=== PATIENT | male | born 1990 | race Caucasian/White ===

== ENCOUNTER 2022-05-01 14:48 | Outpatient (REF) | payer MEDICAID, SELFPAY ==
[2022-05-02 14:13] LABS: COVID-19 RT-PCR UVMMC Result Negative (Negative)
== END 2022-05-01 14:49 | disposition home or self-care (01) ==
LOC: LBN 14:48
PROVIDERS: Visit Provider Physician Assistant
DX: Z20.822 Contact with and (suspected) exposure to COVID-19 (principal); R68.89 Other general symptoms and signs
CPT/HCPCS: U0003

== ENCOUNTER 2022-10-30 15:55 | Outpatient (REF) | payer MEDICAID, SELFPAY ==
[2022-10-30 19:20] LABS: Hemoglobin A1C 9.1 % (<5.7)
[2022-10-30 19:24] LABS: ALT 63 U/L (16-63); Albumin 4.2 g/dL (3.4-5.0); Alkaline Phosphatase 78 U/L (46-116); Anion Gap 11.7 mmol/L (3-11); BUN 13 mg/dL (7-18); Bilirubin, Total 0.4 mg/dL (0.2-1.0); CO2 25.3 mmol/L (21.0-32.0); COMMENT (LAB VIEW ONLY) 48.03 mg/dL; CREATININE 1.1 mg/dL (0.70-1.30); Calcium 9.1 mg/dL (8.5-10.1); Chloride 98 mmol/L (98-107); Cholesterol 312 mg/dL (<200); Estimated GFR 91.47 (mL/min/1.73m2); Glucose 401 mg/dL (74-106); HDL Cholesterol 47 mg/dL (40-60); Microalb ug/mg Crea 46.4 ug/mg Cr; Potassium 4.1 mmol/L (3.5-5.1); Sodium 135 mmol/L (136-145); Total Protein 7.3 g/dL (6.4-8.2); Triglyceride 670 mg/dL (<150)
[2022-10-30 19:38] LABS: LDL CHOLESTEROL 138 mg/dL (<100)
[2022-10-30 19:51] LABS: AST 25 U/L (15-37)
[2022-11-02 09:58] LABS: HIV-1/2 Ag & Ab Screen Negative (Negative)
[2022-11-02 10:26] LABS: Hepatitis C Ab w Rflx HCV PCR Negative (Negative)
[2022-11-02 12:16] LABS: Syphilis Serology (RPR) Negative (Negative)
[2022-11-02 13:48] LABS: Chlamydia Result Negative (Negative); GC Result Negative (Negative)
== END 2022-10-30 15:56 | disposition home or self-care (01) ==
LOC: NCHCN 15:55
PROVIDERS: Visit Provider Physician Assistant
DX: Z11.3 Encounter for screening for infections with a predominantly sexual mode of transmission (principal); Z11.59 Encounter for screening for other viral diseases; Z11.4 Encounter for screening for human immunodeficiency virus [HIV]; E11.9 Type 2 diabetes mellitus without complications; E78.5 Hyperlipidemia, unspecified
CPT/HCPCS: 80053; 80061; 83721; 86803; 87389; 87491; 87591; 82043; 82570; 83036; 86592

== ENCOUNTER 2023-06-30 17:17 | Outpatient (REF) | payer MEDICAID, SELFPAY ==
[2023-06-30 20:52] LABS: MCH 29.1 pg (27.0-33.0); MCHC 34.9 % (32.0-36.0); MCV 83 fL (80-95); MPV 9.5 fL (8.0-11.0); Platelet Count 228 10^3/uL (130-400); RBC 5.16 10^6/uL (4.36-5.78); RDW 12.4 % (11.8-14.1); RDW-SD 37.7 fL; WBC 6.43 10^3/uL (4.4-10.8)
[2023-06-30 20:54] LABS: ESR 7 mm/hr (0-15)
[2023-06-30 21:08] LABS: ALT 35 U/L (16-63); AST 23 U/L (15-37); Albumin 3.8 g/dL (3.4-5.0); Alkaline Phosphatase 69 U/L (46-116); Anion Gap 8.8 mmol/L (3-11); BUN 15 mg/dL (7-18); Bilirubin, Total 0.3 mg/dL (0.2-1.0); C-Reactive Protein 0.08 mg/dL (0.0-0.3); CO2 27.2 mmol/L (21.0-32.0); CREATININE 1.1 mg/dL (0.70-1.30); Calcium 8.7 mg/dL (8.5-10.1); Chloride 104 mmol/L (98-107); Glucose 266 mg/dL (74-106); Potassium 4.2 mmol/L (3.5-5.1); Sodium 140 mmol/L (136-145); Total Protein 6.8 g/dL (6.4-8.2)
[2023-07-02 12:29] LABS: Lyme Ab w Rflx to Lyme Confirm Negative (Negative)
[2023-07-05 15:05] LABS: Anaplasma phagocytophilum Negative (Negative); B. miyamotoi PCR Negative (Negative); Babesia divergens/MO-1 Negative (Negative); Babesia duncani Negative (Negative); Babesia microti Negative (Negative); Ehrlichia chaffeensis Negative (Negative); Ehrlichia ewingii/canis Negative (Negative); Ehrlichia muris eauclairensis Negative (Negative)
== END 2023-06-30 17:18 | disposition home or self-care (01) ==
LOC: NCHCN 17:17
PROVIDERS: Visit Provider Physician Assistant
DX: M25.59 Pain in other specified joint (principal)
CPT/HCPCS: 80053; 85027; 85652; 87798; 83036; 86140; 86618

== ENCOUNTER 2024-01-19 15:53 | Outpatient (REF) | payer MEDICAID, SELFPAY ==
[2024-01-19 19:53] LABS: Albumin 3.8 g/dL (3.4-5.0); Alkaline Phosphatase 90 U/L (46-116); Anion Gap 11.6 mmol/L (3-11); BUN 12 mg/dL (7-18); Bilirubin, Total 0.5 mg/dL (0.2-1.0); CO2 23.4 mmol/L (21.0-32.0); Calcium 8.4 mg/dL (8.5-10.1); Chloride 101 mmol/L (98-107); Cholesterol 219 mg/dL (<200); Estimated GFR 101.92 (mL/min/1.73m2); Glucose 371 mg/dL (74-106); HDL Cholesterol 38 mg/dL (40-60); Potassium 4.5 mmol/L (3.5-5.1); Sodium 136 mmol/L (136-145); Triglyceride 978 mg/dL (<150)
[2024-01-19 20:54] LABS: ALT 36 U/L (16-63)
[2024-01-19 23:11] LABS: AST 9 U/L (15-37)
[2024-01-19 23:13] LABS: LDL CHOLESTEROL 66 mg/dL (<100)
[2024-01-19 23:27] LABS: Total Protein 7.2 g/dL (6.4-8.2)
== END 2024-01-19 15:54 | disposition home or self-care (01) ==
LOC: NCHCN 15:53
PROVIDERS: Visit Provider Physician Assistant
DX: E11.9 Type 2 diabetes mellitus without complications (principal)
CPT/HCPCS: 80053; 80061; 83721; 83036

== ENCOUNTER 2024-11-01 09:08 | Outpatient (REF) | payer MEDICAID, SELFPAY ==
[2024-11-01 22:57] LABS: HIV-1/2 Ag & Ab Screen Negative (Negative)
[2024-11-01 23:02] LABS: Hepatitis C Ab w Rflx HCV PCR Negative (Negative)
[2024-11-02 09:34] LABS: Syphilis Serology (RPR) Negative (Negative)
== END 2024-11-01 09:09 | disposition home or self-care (01) ==
LOC: NCHCN 09:08
PROVIDERS: Visit Provider Physician Assistant
DX: Z11.59 Encounter for screening for other viral diseases (principal)
CPT/HCPCS: 86803; 87389; 86592

== ENCOUNTER 2024-11-28 12:49 | Outpatient (CLI) | payer MEDICAID, SELFPAY ==
--- NOTE | 2024-11-28 | DI.RAD_ITS ---
Exam(s) XR WRIST LT COMPLETE EXAM: XR WRIST LT COMPLETE CLINICAL HISTORY: PAIN LT WRIST,M25.532. TECHNIQUE: 2D digital imaging was performed. Three views. COMPARISON: No exams were available for comparison FINDINGS: BONES: No acute fracture is present. No bony destructive lesion is seen. JOINTS: The carpal bones are normally aligned. SOFT TISSUE: Swelling. IMPRESSION: No acute bony abnormality. DATA REPOSITORY: RADIATION DOSE DELIVERED:
== END 2024-11-28 13:09 ==
PROVIDERS: Visit Provider Physician Assistant
DX: M25.532 Pain in left wrist (principal)
CPT/HCPCS: 73110

== ENCOUNTER 2024-11-28 16:29 | Outpatient (REF) | payer MEDICAID, SELFPAY ==
--- OUTSIDE RECORDS SUMMARY | 2024-11-28 16:30 | XMS_ITS | Encounter Summary ---
Author Organization [facility] Address [address] [place] [address] Care Team Providers Care Bag Shop Worker Name Role Phone Antonio Wilde Primary Care Provider Katherine moreno Encounter Details Date Type Department Care Team (Latest Contact Info) Description 11/01/2024 Transcribe Orders [facility] Lab - Main [place] [address] [place] [address] Dhiarj Smith, [facility] [address] ASHA [address] [place] [address] Encounter for screening for other viral diseases (Primary Dx) Social History Tobacco Use Types Packs/Day Years Used Date Smoking Tobacco: Never Smokeless Tobacco: Current Alcohol Use Standard Drinks/Week Comments Not Currently 0 (1 standard drink = 0.6 oz pur e alcohol) Sex and Gender Information Value Date Recorded Sex Assigned at Male 10/19/2024 18:14 EST Legal Sex Male 17:53 EST Gender Identity Not on file Sexual Orientation Not on file documented as of this encounter Functional Status * Are you deaf or do you have serious difficulty hearing? Answer Date of Assessment Author No 10/19/2024 16:50 EST Shirley Egan, RN documented as of this encounter Plan of Treatment Upcoming Encounters Date Type Department Care Team (Late st Contact Info) Description 12/06/2024 14:45 EST Rehab Therapy Visit [facility] Rehabilitation Therapy [address] [place], [place] [id number] Otter, Anita, OT [address] [place] [address] 12/13/2024 15:45 EST Rehab Therapy Visit [facility] Rehabilitation Therapy [address] [place] [address] Anita Power, OT [address] [place] [address] 12/20/2024 16:30 EST Rehab Therapy Visit [facility] Rehabilitation Therapy [address] [place] [address] Anita Power, OT [address] [place] [address] 12/27/2024 16:30 EST Rehab Therapy Visit [facility] Rehabilitation Therapy [address] [place] [address] Anita Power, OT [address] [place] [address] Scheduled Orders Name Type Priority Associated Diagnoses Orde r Schedule SYPHILIS RPR SCREEN W/REFLEX Lab Routine Encounter for screening for other viral diseases Expected: 11/01/2024 (Approximate), Expires: 01/30/2025 HIV 1/2 ANTIGEN AND ANTIBODY, 4TH GENERATION Lab Routine Encounter for screening for other viral diseases Expected: 11/01/2024 (Approximate), Expires: 01/30/2025 documented as of this encounter Visit Diagnoses Diagnosis Encounter for screening for other viral diseases- Primary documented in this encounter Care Teams Bag Shop Worker Relationship Specialty Start Date End Date Antonio Wilde PA PCP - General 09/25/15 documented as of this encounter
--- OUTSIDE RECORDS SUMMARY | 2024-11-28 16:30 | XMS_ITS | Encounter Summary ---
Author Organization [facility] Address [address] [place] [address] Care Team Providers Care Shift Commander Name Role Phone Antonio Wilde Primary Care Provider Katherine moreno Encounter Details Date Type Department Care Team (Latest Contact Info) Description 10/19/2024 Travel Social History Tobacco Use Types Packs/Day Years [...] Description 12/06/2024 14:45 EST Rehab Therapy Visit [facility] Rehabilitation Therapy [address] [place] [address] Anita Power, OT [address] [place] [address] 12/13/2024 15:45 EST Rehab Therapy Visit [facility] Rehabilitation Therapy [address] [place] [address] Anita Power, OT [address] [place] [address] 12/20/2024 16:30 EST Rehab Therapy Visit [facility] Rehabilitation Therapy [address] [place] [address] Anita Power, OT [address] [place] [address] 12/27/2024 16:30 EST Rehab Therapy Visit [facility] Rehabilitation Therapy [address] [place] [address] Anita Power, OT [address] [place] [address] documented as of this encounter Visit Diagnoses Not on filedocumented in this encounter Care Teams Shift Commander Relationship Specialty Start Date End Date Antonio Wilde PA PCP - General 09/25/15 documented as of this encounter
--- OUTSIDE RECORDS SUMMARY | 2024-11-28 16:30 | XMS_ITS | Encounter Summary ---
Author Organization [facility] Address [address] [place] [address] Care Team Providers Care Associate Publisher Name Role Phone Antonio Wilde Primary Care Provider Katherine moreno Encounter Details Date Type Department Care Team (Latest Contact Info) Description 11/28/2024 Transcribe Orders [facility] Lab - Main [place] [address] [place] [address] Dhiraj Smith, [facility] [address] ASHA [address] [place] [address] Type 2 diabetes mellitus without complications ([facility]) (Primary Dx) Social History Tobacco Use Types [...] Description 12/06/2024 14:45 EST Rehab Therapy Visit [facility] Rehabilitation Therapy [address] [place] [address] Anita Power, OT [address] [place] [address] 12/13/2024 15:45 EST Rehab Therapy Visit [facility] Rehabilitation Therapy [address] [place] [address] Anita Power, OT [address] [place] [address] 12/20/2024 16:30 EST Rehab Therapy Visit [facility] Rehabilitation Therapy [address] [place] [address] Anita Power, OT [address] [place] [address] 12/27/2024 16:30 EST Rehab Therapy Visit [facility] Rehabilitation Therapy [address] [place] [address] Anita Power, OT [address] [place] [address] Scheduled Orders Name Type Priority Associated Diagnoses Orde r Schedule COMPREHENSIVE METABOLIC PANEL (CMP) Lab Routine Type 2 diabetes mellitus without complications ([facility]) Expected: 11/28/2024 (Approximate), Expires: 11/28/2025 LIPID PROFILE (INCLUDES CHOLESTEROL, TRIGLYCERIDES, HDL, LDL) Lab Routine Type 2 diabetes mellitus without complications ([facility]) Expected: 11/28/2024 (Approximate), Expires: 11/28/2025 documented as of this encounter Visit Diagnoses Diagnosis Type 2 diabetes mellitus without complications ([facility])- Primary Type II or unspecified type diabetes mellitus without mention of complication, not stated as uncontrolled documented in this encounter Care Teams Associate Publisher Relationship Specialty Start Date End Date Antonio Wilde PA PCP - General 09/25/15 documented as of this encounter
--- OUTSIDE RECORDS SUMMARY | 2024-11-28 16:30 | XMS_ITS | Encounter Summary ---
Author Organization [facility] Address [address] [place] [address] Care Team Providers Care Systems Test Analyst Name Role Phone Antonio Wilde Primary Care Provider Katherine moreno Encounter Details Date Type Department Care Team (Latest Contact Info) Description 11/28/2024 Transcribe Orders [facility] Lab - Main [place] [address] [place] [address] Dhiraj Smith, [facility] [address] ASHA [address] [place] [address] Type 2 diabetes mellitus without complications ([facility]) (Primary Dx) Social History Tobacco Use [...] Description 12/06/2024 14:45 EST Rehab Therapy Visit [facility] Rehabilitation Therapy [address] [place] [address] Anita Power, OT [address] [place] [address] 12/13/2024 15:45 EST Rehab Therapy Visit [facility] Rehabilitation Therapy [address] [place] [address] Anita Power, OT [address] [place] [address] 12/20/2024 16:30 EST Rehab Therapy Visit [facility] Rehabilitation Therapy [address] [place] [address] Anita Power, OT [address] [place] [address] 12/27/2024 16:30 EST Rehab Therapy Visit [facility] Rehabilitation Therapy [address] [place] [address] Anita Power, OT [address] [place] [address] Scheduled Orders Name Type Priority Associated Diagnoses Orde r Schedule HEMOGLOBIN A1C Lab Routine Type 2 diabetes mellitus without complications ([facility]) Expected: 11/28/2024 (Approximate), Expires: 02/26/2025 documented as of this encounter Visit Diagnoses Diagnosis Type 2 diabetes mellitus without complications ([facility])- Primary Type II or unspecified type diabetes mellitus without mention of complication, not stated as uncontrolled documented in this encounter Care Teams Systems Test Analyst Relationship Specialty Start Date End Date Antonio Wilde PA PCP - General 09/25/15 documented as of this encounter
--- OUTSIDE RECORDS SUMMARY | 2024-11-28 16:30 | XMS_ITS | Encounter Summary ---
Author Organization [facility] Address [address] [place] [address] Care Team Providers Care Heavy Equipment Operator/Paver Name Role Phone Antonio Wilde Primary Care Provider Katherine moreno Encounter Details Date Type Department Care Team (Late st Contact Info) Description 11/01/2024 Lab Requisition [facility] Pathology & Laboratory Medicine - [facility] [address] [place] [address] Outr Resulting Lab, Provider Social History Tobacco Use Types Packs/Day Years [...] Description 12/06/2024 14:45 EST Rehab Therapy Visit [facility] Rehabilitation Therapy [address] [place] [address] Anita Power, OT [address] [place] [address] 12/13/2024 15:45 EST Rehab Therapy Visit [facility] Rehabilitation Therapy [address] [place] [address] Anita Power, OT [address] [place] [address] 12/20/2024 16:30 EST Rehab Therapy Visit [facility] Rehabilitation Therapy [address] [place] [address] Anita Power, OT [address] [place] [address] 12/27/2024 16:30 EST Rehab Therapy Visit [facility] Rehabilitation Therapy [address] [place] [address] Anita Power, OT [address] [place] [address] documented as of this encounter Procedures Procedure Name Priority Date/Time Associated Diagnosis Comments HIV 1/2 ANTIGEN AND ANTIBODY, 4TH GENERATION Routine 11/01/2024 8:00 EST documented in this encounter Results * HIV 1/2 ANTIGEN AND ANTIBODY, 4TH GENERATION (11/01/2024 8:00 EST) HIV 1 and 2 Antibody/p24 Antigen, 4th Generation Negative Negative 11/01/2024 22:51 EST [facility] Comment:If acute HIV-1 infec tion is suspected in a high risk patient, submit plasma specimen for HIV-1 RNA quantitation test. Blood VENOUS BLOOD / Unknown 11/01/2024 8:00 EST 11/01/2024 21:09 EST Narrative [facility] - 11/01/2024 22:51 EST Fourth Generation assay performed on the Siemens Centaur XPT. us Provider Outr Resulting Lab IMMUNOLOGY AND SEROL OGY ORDERABLES Final Result [facility] [address] [place] [address] documented in this encounter Visit Diagnoses Not on filedocumented in this encounter Care Teams Heavy Equipment Operator/Paver Relationship Specialty Start Date End Date Antonio Wilde PA PCP - General 09/25/15 documented as of this encounter
--- OUTSIDE RECORDS SUMMARY | 2024-11-28 16:30 | XMS_ITS | Encounter Summary ---
Author Organization [facility] Address [address] [place] [address] Care Team Providers Care Vault Person Name Role Phone Antonio Wilde Primary Care Provider Unavaila ble Reason for Visit * Reason Comments Wrist Injury Patient presents wit h atraumatic left wrist pain and swelling for the past 2 weeks. Encounter Details Date Type Department Care Team (Late st Contact Info) Description 10/19/2024 16:54 EST - 10/19/2024 18:23 EST Emergency [facility] Emergency Department [address] [place] [address] Ermias Samuel MD [address] [place] [address] Left wrist pain (Primary Dx) Discharge Disposition: Home or Self Care Social History Tobacco Use Types Packs/Day Years [...] on file documented as of this encounter Last Filed Vital Signs Vital Sign Reading Time Taken Comments Blood Pressure 161/94 10/19/2024 1651 EST Pulse 90 10/19/2024 1651 EST Temperature 36.9 ??C (98.5 ??F) 10/19/2024 1651 EST Respiratory Rate 14 10/19/2024 1651 EST Oxygen Saturation 98% 10/19/2024 1651 EST Inhaled Oxygen Concentration - - Weight 80.3 kg (177 lb) 10/19/2024 1651 EST Height 172.7 cm (5' 8) 10/19/2024 1651 EST Body Mass Index 26.91 10/19/2024 1651 EST documented in this encounter Functional Status * Are you deaf or do you have serious difficulty hearing? Answer Date of Assessment Author No 10/19/2024 16:50 EST Shirley Egan RN documented as of this encounter Discharge Instructions * Discharge Instructions* Ermias Samuel MD - 10/19/2024 18:11 EST You were seen in the department for left wrist pain and swelling. Your x-rays did not show any abnormalities with your bones. It is possible this is due to gout or pseudogout. These are both treated with anti-inflammatory pain medication. Take indomethacin 50 mg 3 times daily. Continue the medication for a few days after your pain improves. Wear the wrist splint to support your wrist, especially when you are working. If you can limit the amount of heavy lifting and physical activity you do with your wrist this will help the pain improved faster. Follow-up with your primary care provider soon as possible. Return to the ED for worsening symptoms. documented in this encounter Medications at Time of Discharge indomethacin (INDOCIN) 50 mg capsule Take 1 Capsule by mouth 3 times daily as needed for Pain. 30 Capsule 10/19/2024 insulin glargine 100 unit/mL (3 mL) injection pen Inject 40 Units into the skin at bedtime. insulin lispro (HUMALOG) 100 unit/mL vialIndications:t ype 1 diabetes mellitus Inject 8 Units into the skin 3 times daily before meals. semaglutide (OZEMPIC) 1 mg/dose (2 mg/1.5 mL) pen injector Inject 0.75 mL into the skin once a week. documented as of this encounter Ordered Prescriptions Prescription Sig Dispense Quantity Refills Last Filled Start Date End Date indomethacin (INDOCIN) 50 mg capsule Take 1 Capsule by mouth 3 times daily as needed for Pain. 30 Capsule 10/19/2024 documented in this encounter Discharge Disposition Disposition Code Departure Means Destination Comment s Home or Self Half-Way documented in this encounter ED Notes * Ermias Samuel MD - 10/19/2024 1630 EST Emergency Department Visit Medical Decision Making 34-year-old male with insulin-dependent diabetes presents to the ED with about 3 weeks of atraumatic left wrist pain. On exam the wrist is slightly swollen, not red or warm. Range of motion is limited by pain and there is tenderness that is worst over the radial aspect and distal radius. By ultrasound there is a very small amount of fluid surrounding one of the extensor tendons but no significant effusion to allow arthrocentesis. Differential includes crystal arthropathy, tendinosis, arthritis,less likely destructive bony lesion. Considered septic joint but symptoms and exam are not concerning for this. Left wrist x-rays obtained and independently reviewed. These are normal. 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 He was provided with a Velcro wrist splint and Iprescribed indomethacin. I recommended he try to avoid heavy lifting at work and offered to write awork note but he does not think he can afford to take any days off. I recommended he follow-up withhis PCP. Medical Decision Making Problems Addressed: Left wrist pain: complicated acute illness or injury Amount and/or Complexity of Data Reviewed Radiology: ordered. Risk Prescription drug management. Final diagnoses: Left wrist pain Disposition: Discharged Chief complaint: Wrist pain HPI Wilson Monteiro is a 34 y.o. patient with insulin-dependent diabetes who presents to the ED for left wrist pain. Has had pain in his left wrist for about 3 weeks. Does not recall any preceding trauma. 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 His wrist is swollen. It is not red. He states it is often hot and painful in the morning. No fever. History was provided by: Patient Patient's pertinent PMH, FH, SH were reviewed and edited as necessary. Nursing notes reviewed. A medical screening exam was performed. Physical Exam BP (!) 161/94 (BP Cuff Location: Left arm, BP Patient Position: Sitting) Pulse 90 Temp 36.9 ??C(98.5 ??F) (Oral) Resp 14 Ht 172.7 cm (68) Wt 80.3 kg (177 lb) SpO2 98% BMI 26.91 kg/m?? Physical Exam Vitals and nursing note reviewed. Constitutional: General: He is not in acute distress. Appearance: Normal appearance. HENT: Head: Normocephalic and atraumatic. Right Ear: External ear normal. Left Ear: External ear normal. Nose: Nose normal. Mouth/Throat: Mouth: Mucous membranes are moist. Eyes: Extraocular Movements: Extraocular movements intact. Conjunctiva/sclera: Conjunctivae normal. Pupils: Pupils are equal, round, and reactive to light. Cardiovascular: Rate and Rhythm: Normal rate and regular rhythm. Heart sounds: Normal heart sounds. Pulmonary: Effort: Pulmonary effort is normal. Breath sounds: Normal breath sounds. Musculoskeletal: General: No deformity. Cervical back: Normal range of motion and neck supple. Comments: Left wrist is mildly swollen. No redness or warmth. Range of motion is limited by pain. There is tenderness that is worse over the radial aspect and over the distal radius. Normal strength,sensation and capillary refill to the left hand. Skin: General: Skin is warm and dry. Neurological: General: No focal deficit present. Mental Status: He is alert and oriented to person, place, and time. Psychiatric: Mood and Affect: Mood normal. Behavior: Behavior normal. Procedures Procedures documented in this encounter Plan of Treatment Upcoming Encounters Date Type Department Care Team (Late st Contact Info) Description 12/06/2024 14:45 EST Rehab Therapy Visit [facility] Rehabilitation Therapy [address] [place] [address] Anita Power, OT [address] [place] [address] 12/13/2024 15:45 EST Rehab Therapy Visit [facility] Rehabilitation Therapy [address] [place] [address] Anita Power OT [address] [place] [address] 12/20/2024 16:30 EST Rehab Therapy Visit [facility] Rehabilitation Therapy [address] [place] [address] Anita Power OT [address] [place] [address] 12/27/2024 16:30 EST Rehab Therapy Visit [facility] Rehabilitation Therapy [address] [place] [address] Anita Power, OT [address] [place] [address] documented as of this encounter Procedures Procedure Name Priority Date/Time Associated Diagnosis Comments XR WRIST LEFT 3 OR MORE VIEWS STAT 10/19/2024 17:27 EST documented in this encounter Results * XR WRIST LEFT 3 OR MORE VIEWS (10/19/2024 17:27 EST) Anatomical Region Laterality Modality Upper Extremities Left Computed Radio graphy 10/19/2024 17:2 0 EST Impressions 10/19/2024 17:47 EST Normal appearing wrist. THIS DOCUMENT HAS BEEN ELECTRONICALLY SIGNED BY ARIELLA PARK MD FOR ANY QUESTIONS OR CONCERNS REGARDING THIS REPORT PLEASE CALL [facility] AT [phone] Narrative 10/19/2024 17:47 EST PROCEDURE INFORMATION: Exam: XR Left Wrist Exam date and time: 10/19/2024 5:20 PM Age: 34 years old Clinical indication: Other: Atraumatic left wrist pain and swelling x3 weeks TECHNIQUE: Imaging protocol: Radiologic exam of the left wrist. Views: 3 or more views. COMPARISON: No relevant prior studies available. FINDINGS: Bones/joints: The alignment of the joints is anatomic and the joint spaces are maintained. No fracture is identified. Soft tissues: No soft tissue swelling or radiopaque foreign body is seen. Procedure Note Ariella Park MD - 10/19/2024 PROCEDURE INFORMATION: Exam: XR Left Wrist Exam date and time: 10/19/2024 5:20 PM Age: 34 years old Clinical indication: Other: Atraumatic left wrist pain and swelling x3 weeks TECHNIQUE: Imaging protocol: Radiologic exam of the left wrist. Views: 3 or more views. COMPARISON: No relevant prior studies available. FINDINGS: Bones/joints: The alignment of the joints is anatomic and the joint spaces are maintained. No fracture is identified. Soft tissues: No soft tissue swelling or radiopaque foreign body is seen. IMPRESSION Normal appearing wrist. THIS DOCUMENT HAS BEEN ELECTRONICALLY SIGNED BY ARIELLA PARK MD FOR ANY QUESTIONS OR CONCERNS REGARDING THIS REPORT PLEASE CALL [facility] [phone] us Ermias Samuel MD IMG DIAGNOSTIC IMAGING ORDERABLE S Final Result documented in this encounter Visit Diagnoses Diagnosis Left wrist pain- Primary Pain in joint, forearm documented in this encounter Administered Medications Inactive Administered Medications - up to 3 most recent administrations Medication Order MAR Action Action Date Dose Rate Site indomethacin (INDOCIN) capsule 50 mg 50 mg, oral, NOW X1, 1 dose, On [place] 10/19/24 at 1830, STAT Given 10/19/2024 18:18 EST 50 mg documented in this encounter Historical Medications * This list may reflect changes made after this encounter. semaglutide (OZEMPIC) 1 mg/dose (2 mg/1.5 mL) pen injector Inject 0.75 mL into the skin once a week. added in this encounter Active and Recently Administered Medications Times are shown in EST. Scheduled Medication Order 10/17/2024 10/18/2024 10/19/2024 indomethacin (INDOCIN) capsule 50 mg (COMPLETED) 50 mg, oral, NOW X1, 1 dose, On [place] 10/19/24 at 1830, STAT 1818 (Given - Provid er: Fani Antonio RN) documented in this encounter Care Teams Vault Person Relationship Specialty Start Date End Date Antonio Wilde PA PCP - General 09/25/15 documented as of this encounter
--- OUTSIDE RECORDS SUMMARY | 2024-11-28 16:30 | XMS_ITS | Clinical Summary ---
Author Organization [facility] Address [address] [place] [address] Care Team Providers Care Offset Proof Press Operator Name Role Phone Antonio Wilde Primary Care Provider Unavaila ble Allergies No known active allergies Medications insulin lispro (HUMALOG) 100 unit/mL vialIndications :type 1 diabetes mellitus Inject 8 Units into the skin 3 times daily before meals. Active insulin glargine 100 unit/mL (3 mL) injection pen Inject 40 Units into the skin at bedtime. Active semaglutide (OZEMPIC) 1 mg/dose (2 mg/1.5 mL) pen injector Inject 0.75 mL into the skin once a week. Active indomethacin (INDOCIN) 50 mg capsule Take 1 Capsule by mouth 3 times daily as needed for Pain. 30 Capsule 10/19/2024 Active Encounters Date Type Department Care Team Description 11/28/2024 Transcribe Orders [facility] [place] [address] Dhiraj Smith RPA Type 2 diabetes mellitus without complications ([facility]) (Primary Dx) 11/28/2024 Transcribe Orders [facility] - [address] [address] Dhiraj Smith RPA Type 2 diabetes mellitus without complications ([facility]) (Primary Dx) 11/01/2024 Lab Requisition [facility] Pathology & Laboratory Medicine - [address] [address] Outr Resulting Lab, Provider 11/01/2024 Lab Requisition [facility] Pathology & Laboratory Medicine - [facility] [address] [place] [address] Outr Resulting Lab, Provider 11/01/2024 Transcribe Orders [facility] - Main [place] [address] [place], [place] [address] Dhiraj Smith RPA Encounter for screening for other viral diseases (Primary Dx) 10/19/2024 16:54 EST - 10/19/2024 18:23 EST Emergency [facility] Emergency Department [address] [place], [place] [address] Ermias Samuel MD Left wrist pain (Primary Dx) Discharge Disposition: Home or Self Care 10/19/2024 Travel from Last 3 Months Medical History Medical History Date Comments Diabetes mellitus ([facility]) Social History Tobacco Use Types Packs/Day Years Used Date Smoking Tobacco: Never Smokeless Tobacco: Current Tobacco Cessation:Ready to Q uit: Yes; Counseling Given: Not Answered Alcohol Use Standard Drinks/Week Comments Not Currently 0 (1 standard drink = 0.6 oz pur e alcohol) Sex and Gender Information Value Date Recorded Sex Assigned at Male 10/19/2024 18:14 EST Legal Sex Male 17:53 EST Gender Identity Not on file Sexual Orientation Not on file Obstetrics History Last Filed Vital Signs Vital Sign Reading [...] Body Mass Index 26.91 10/19/2024 1651 EST Plan of Treatment Upcoming Encounters Date Type Department Care Team (Late st Contact Info) Description 12/06/2024 14:45 EST Rehab Therapy Visit [facility] Rehabilitation Therapy [address] [place], [place] [id number] Anita Power, OT [address] [place] [address] 12/13/2024 15:45 EST Rehab Therapy Visit [facility] Rehabilitation Therapy [address] [place] [address] Anita Power, OT [address] [place] [address] 12/20/2024 16:30 EST Rehab Therapy Visit [facility] Rehabilitation Therapy [address] [place] [address] Anita Power, OT [address] [place] [address] 12/27/2024 16:30 EST Rehab Therapy Visit [facility] Rehabilitation Therapy [address] [place] [address] Anita Power, OT [address] [place] [address] Health Maintenance Due Date Last Done Comments Hepatitis B Vaccine (1 of 3 - 19+ 3-dose series) 2009 COVID-19 Vaccine (2023- season) 2024, 12/09/2020 Hepatitis C Screen Completed 11/01/2024, 10/30/2022 Procedures Procedure Name Priority Date/Time Associated Diagnosis Comments SYPHILIS SEROLOGY Routine 11/01/2024 8:0 0 EST HEPATITIS C AB W REFLEX TO HCV RNA BY PCR Routine 11/01/2024 8:00 EST HIV 1/2 ANTIGEN AND ANTIBODY, 4TH GENERATION Routine 11/01/2024 8:00 EST XR WRIST LEFT 3 OR MORE VIEWS STAT 10/19/2024 17:27 EST from Last 3 Months Results * SYPHILIS SEROLOGY (11/01/2024 8:00 EST) Syphilis Serology Negative Negative 11/02/2024 9:29 EST [facility] Blood VENOUS BLOOD / Unknown 11/01/2024 8:00 EST 11/01/2024 21:09 EST us Provider Outr Resulting Lab IMMUNOLOGY AND SEROL OGY ORDERABLES Final Result [facility] [address] [place], [place] [id number] * HEPATITIS C AB W REFLEX TO HCV RNA BY PCR (11/01/2024 8:00 EST) Hep C Antibody Negative Negative 11/01/2024 22:57 EST [facility] Blood VENOUS BLOOD / Unknown 11/01/2024 8:00 EST 11/01/2024 21:09 EST us Provider Outr Resulting Lab CHEMISTRY & BLOOD GA S ORDERABLES Final Result Performing Organization Address [facility] de Phone Number [facility] [address] [place] [address] * HIV 1/2 ANTIGEN AND ANTIBODY, 4TH GENERATION (11/01/2024 8:00 EST) HIV 1 and 2 Antibody/p24 Antigen, 4th Generation Negative Negative 11/01/2024 22:51 EST [facility] Comment:If acute HIV-1 infec tion is suspected in a high risk patient, submit plasma specimen for HIV-1 RNA quantitation test. Blood VENOUS BLOOD / Unknown 11/01/2024 8:00 EST 11/01/2024 21:09 EST Narrative [facility] - 11/01/2024 22:51 EST Fourth Generation assay performed on the Siemens Centaur XPT. us Provider Outr Resulting Lab IMMUNOLOGY AND SEROL OGY ORDERABLES Final Result Performing Organization Address [facility]/ZIP Co de Phone Number [facility] [address] [place], [place] [id number] * XR WRIST LEFT 3 OR MORE VIEWS (10/19/2024 17:27 EST) Anatomical Region Laterality Modality Upper Extremities Left Computed Radio graphy 10/19/2024 17:2 0 EST Impressions 10/19/2024 17:47 EST Normal appearing wrist. THIS DOCUMENT HAS BEEN ELECTRONICALLY SIGNED BY ARIELLA PARK MD FOR ANY QUESTIONS OR CONCERNS REGARDING THIS REPORT PLEASE CALL [facility] AT [phone] Narrative 10/19/2024 17:47 EST PROCEDURE INFORMATION: Exam: [...] CONCERNS REGARDING THIS REPORT PLEASE CALL [facility] [phone] Ermias Samuel MD IM DIAGNOSTIC IMAGING ORDERABLE S Final Result from Last 3 Months Insurance MEDICAID [place] [facility] GL Address: [address] [place] [address] MEDICAID [facility] Care Teams Offset Proof Press Operator Relationship Specialty Start Date End Date Antonio Wilde PA PCP - General 09/25/15
--- OUTSIDE RECORDS SUMMARY | 2024-11-28 16:30 | XMS_ITS | Referral Summary ---
Author Organization [facility] Address [address] [place] [address] Care Team Providers Care Half Sole Fitter Name Role Phone Antonio Wilde Primary Care Provider Katherine moreno Encounters Date Type Department Care Team Description 11/28/2024 Transcribe Orders [facility] Lab - Main [place] [id number] Dhiraj Smith RPA Type 2 diabetes mellitus without complications (HCC-CMS) (Primary Dx) 11/28/2024 Transcribe Orders [facility] Lab - Main [address] [address] Dhiraj Smith RPA Type 2 diabetes mellitus without complications (HCC-CMS) (Primary Dx) 11/01/2024 Lab Requisition [facility] Pathology & Laboratory Medicine - [address] [address] Outr Resulting Lab, Provider 11/01/2024 Lab Requisition [facility] Pathology & Laboratory [facility] - [address] [address] Outr Resulting Lab, Provider 11/01/2024 Transcribe Orders [facility] - [address] [address] Dhiraj Smith RPA Encounter for screening for other viral diseases (Primary Dx) 10/19/2024 Travel 10/19/2024 16:54 EST - 10/19/2024 18:23 EST Emergency [facility] Emergency Department [address] [place] [id number] Ermias Samuel MD Left wrist pain (Primary Dx) Discharge Disposition: Home or Self Care from Last 3 Months Allergies No known active allergies Medications insulin [...] needed for Pain. 30 Capsule 10/19/2024 Active Social History Tobacco Use Types Packs/Day Years [...] on file Sexual Orientation Not on file Last Filed Vital Signs Vital Sign Reading [...] Body Mass Index 26.91 10/19/2024 1651 EST Functional Status * Are you deaf or do you have serious difficulty hearing? Answer Date of Assessment Author No 10/19/2024 16:50 EST Shirley Egan, RN Plan of Treatment Upcoming Encounters Date Type Department Care Team (Late st Contact Info) Description 12/06/2024 14:45 EST Rehab Therapy Visit [facility] Rehabilitation Therapy [address] [place] [address] Jannet Anita, OT [address] [place] [address] 12/13/2024 15:45 EST Rehab Therapy Visit [facility] Rehabilitation Therapy [address] [facility] [place] [address] Jannet Anita, OT [address] [place] [address] 12/20/2024 16:30 EST Rehab Therapy Visit [facility] Rehabilitation Therapy [address] [facility] [place] [address] Jannet Anita, OT [address] [place] [address] 12/27/2024 16:30 EST Rehab Therapy Visit [facility] Rehabilitation Therapy [address] [facility] [place] [address] Jannet Anita, OT [address] [place] [address] Procedures Procedure Name Priority Date/Time Associated Diagnosis [...] Syphilis Serology Negative Negative 11/02/2024 9:29 EST [facility] Blood VENOUS BLOOD / Unknown 11/01/2024 8:00 EST 11/01/2024 21:09 EST us Provider Outr Resulting Lab IMMUNOLOGY AND SEROL OGY ORDERABLES Final Result [facility] [address] [place] [address] * HEPATITIS C AB W REFLEX TO HCV RNA BY PCR (11/01/2024 8:00 EST) Hep C Antibody Negative Negative 11/01/2024 22:57 EST [facility] Blood VENOUS BLOOD / Unknown 11/01/2024 8:00 EST 11/01/2024 21:09 EST us Provider Outr Resulting Lab CHEMISTRY & BLOOD GA S ORDERABLES Final Result Performing Organization Address [facility] de Phone Number [facility] [address] [place] [address] * HIV 1/2 ANTIGEN AND ANTIBODY, 4TH GENERATION (11/01/2024 8:00 EST) HIV 1 and 2 Antibody/p24 Antigen, 4th Generation Negative Negative 11/01/2024 22:51 EST [facility] Comment:If acute HIV-1 infec tion is suspected in a high risk patient, submit plasma specimen for HIV-1 RNA quantitation test. Blood VENOUS BLOOD / Unknown 11/01/2024 8:00 EST 11/01/2024 21:09 EST Narrative [facility] - 11/01/2024 22:51 EST Fourth Generation assay performed on the Siemens Centaur XPT. us Provider Outr Resulting Lab IMMUNOLOGY AND SEROL OGY ORDERABLES Final Result Performing Organization Address [facility] Co de Phone Number [facility] [address] [place] [address] * XR WRIST LEFT 3 OR MORE VIEWS (10/19/2024 17:27 EST) Anatomical Region Laterality Modality Upper Extremities Left Computed Radio graphy 10/19/2024 17:2 0 EST Impressions 10/19/2024 17:47 EST Normal appearing wrist. THIS DOCUMENT HAS BEEN ELECTRONICALLY SIGNED BY ARIELLA PARK MD FOR ANY QUESTIONS OR CONCERNS REGARDING THIS REPORT PLEASE CALL [facility] AT [phone] [facility] 10/19/2024 17:47 EST PROCEDURE INFORMATION: Exam: XR [...] CONCERNS REGARDING THIS REPORT PLEASE CALL [facility] [phone] Ermias Samuel MD IMG DIAGNOSTIC IMAGING ORDERABLE S Final Result from Last 3 Months Insurance [place] Care Teams Half Sole Fitter Relationship Specialty Start Date End Date Antonio Wilde PA PCP - General 09/25/15
--- OUTSIDE RECORDS SUMMARY | 2024-11-28 16:30 | XMS_ITS | Encounter Summary ---
Author Organization [facility] Address [address] [place] [address] Care Team Providers Care Manager Field Service Name Role Phone Antonio Wilde Primary Care Provider Katherine moreno Encounter Details Date Type Department Care Team (Late st Contact Info) Description 11/01/2024 Lab Requisition [facility] Pathology & Laboratory Medicine - [facility] [address] [place] [address] Outr Resulting Lab, Provider Social History Tobacco [...] Description 12/06/2024 14:45 EST Rehab Therapy Visit [facility] Rehabilitation Therapy [address] [place] [address] Anita Power, OT [address] [place] [address] 12/13/2024 15:45 EST Rehab Therapy Visit [facility] Rehabilitation Therapy [address] [place] [address] Anita Power, OT [address] [place] [address] 12/20/2024 16:30 EST Rehab Therapy Visit [facility] Rehabilitation Therapy [address] [place] [address] Anita Power, OT [address] [place] [address] 12/27/2024 16:30 EST Rehab Therapy Visit [facility] Rehabilitation Therapy [address] [place] [address] Anita Power, OT [address] [facility] [place] [address] documented as of this encounter Procedures Procedure Name Priority Date/Time Associated Diagnosis Comments SYPHILIS SEROLOGY Routine 11/01/2024 8:00 EST HEPATITIS C AB W REFLEX TO HCV RNA BY PCR Routine 11/01/2024 8:00 EST documented in this encounter Results * SYPHILIS SEROLOGY (11/01/2024 8:00 EST) Syphilis Serology Negative Negative 11/02/2024 9:29 EST [facility] Blood VENOUS BLOOD / Unknown 11/01/2024 8:00 EST 11/01/2024 21:09 EST us Provider Outr Resulting Lab IMMUNOLOGY AND SEROL OGY ORDERABLES Final Result [facility] [address] [place] [id number] * HEPATITIS C AB W REFLEX TO HCV RNA BY PCR (11/01/2024 8:00 EST) Hep C Antibody Negative Negative 11/01/2024 22:57 EST [facility] Blood VENOUS BLOOD / Unknown 11/01/2024 8:00 EST 11/01/2024 21:09 EST us Provider Outr Resulting Lab CHEMISTRY & BLOOD GA S ORDERABLES Final Result [facility] [address] [place] [address] documented in this encounter Visit Diagnoses Not on filedocumented in this encounter Care Teams Manager Field Service Relationship Specialty Start Date End Date Antonio Wilde PA PCP - General 09/25/15 documented as of this encounter
--- OUTSIDE RECORDS SUMMARY | 2024-11-28 16:31 | XMS_ITS | Encounter Summary ---
Author Organization [facility] Address [address] [place] [address] Care Team Providers Care Special Education Educational Assistant Name Role Phone Antonoi Wilde Primary Care Provider Katherine moreno Encounter Details Date Type Department Care Team (Late st Contact Info) Description 10/31/2022 Lab Requisition [facility] Pathology & Laboratory Medicine - [address] [address] Outr Resulting Lab, Provider Social History Tobacco Use Types Packs/Day Years Used Date Smoking Tobacco: Never Assessed Sex and Gender Information Value Date Recorded Sex Assigned at Male 10/19/2024 18:14 EST Legal Sex Male 17:53 EST Gender Identity Not on file Sexual Orientation Not on file documented as of this encounter Plan of Treatment Upcoming Encounters Date Type Department Care Team (Late st Contact Info) Description 12/06/2024 14:45 EST Rehab Therapy Visit [facility] Rehabilitation Therapy [address] [place] [address] Anita Power, OT [address] [place] [address] 12/13/2024 15:45 EST Rehab Therapy Visit [facility] Rehabilitation Therapy [address] [place] [address] Anita Power, OT [address] [place] [address] 12/20/2024 16:30 EST Rehab Therapy Visit [facility] Rehabilitation Therapy [address] [facility] [place] [address] Anita Power, OT [address] [place] [address] 12/27/2024 16:30 EST Rehab Therapy Visit [facility] Rehabilitation Therapy [address] [facility] [place] [address] Anita Power, OT [address] [facility] [address] documented as of this encounter Procedures Procedure Name Priority Date/Time Associated Diagnosis Comments SYPHILIS SEROLOGY Routine 10/30/2022 15: 25 EST HEPATITIS C AB W REFLEX TO HCV RNA BY PCR Routine 10/30/2022 15:25 EST documented in this encounter Results * SYPHILIS SEROLOGY (10/30/2022 15:25 EST) Syphilis Serology Negative Negative 11/02/2022 12:11 EST [facility] Blood VENOUS BLOOD / Unknown 10/30/2022 15:25 EST 11/01/2022 17:09 EST us Provider Outr Resulting Lab IMMUNOLOGY AND SEROL OGY ORDERABLES Final Result Performing Organization Address [facility] Co de Phone Number [facility] [address] [place] [address] * HEPATITIS C AB W REFLEX TO HCV RNA BY PCR (10/30/2022 15:25 EST) Hep C Antibody Negative Negative 11/02/2022 10:21 EST [facility] Blood VENOUS BLOOD / Unknown 10/30/2022 15:25 EST 11/01/2022 17:09 EST us Provider Outr Resulting Lab CHEMISTRY & BLOOD GA S ORDERABLES Final Result Performing Organization Address [facility] Co de Phone Number [facility] [address] [place] [address] documented in this encounter Visit Diagnoses Not on filedocumented in this encounter Care Teams Special Education Educational Assistant Relationship Specialty Start Date End Date Antonio Wilde PA PCP - General 09/25/15 documented as of this encounter
--- OUTSIDE RECORDS SUMMARY | 2024-11-28 16:31 | XMS_ITS | Encounter Summary ---
Author Organization [facility] Address [address] [place] [address] Care Team Providers Care Director Supply Chain Name Role Phone Unavailable Primary Care Provider Unavailabl e Encounter Details Date Type Department Care Team (Late st Contact Info) Description 12/01/2005 7:31 EST - 12/01/2005 11:59 EST Hospital Encounter [address] [address] [facility] [address] [place] [phone] Discharge Disposition: Auto Discharge Social History Tobacco Use Types Packs/Day Years Used Date Smoking Tobacco: Never Assessed Sex and Gender Information Value Date Recorded Sex Assigned at Male 10/19/2024 18:14 EST Legal Sex Male 17:53 EST Gender Identity Not on file Sexual Orientation Not on file documented as of this encounter Discharge Disposition Disposition Code Departure Means Destination Auto Discharge documented in this encounter Plan of Treatment Upcoming Encounters Date Type Department Care Team (Late st Contact Info) Description 12/06/2024 14:45 EST Rehab Therapy Visit [facility] Rehabilitation Therapy [address] [place], [place] [id number] Anita Power, OT [address] [place] [address] 12/13/2024 15:45 EST Rehab Therapy Visit [facility] Rehabilitation Therapy [address] [place] [address] Anita Power, OT [address] [place] [address] 12/20/2024 16:30 EST Rehab Therapy Visit [facility] Therapy [address] [place] [address] Anita Power, OT [address] [place] [address] 12/27/2024 16:30 EST Rehab Therapy Visit [facility] Rehabilitation Therapy [address] [place] [address] Anita Power, OT [address] [place] [address] documented as of this encounter Procedures Procedure Name Priority Date/Time Associated Diagnosis Comments ZZHEMOGLOBIN A1C Routine 12/01/2005 10:2 3 EST INSULIN Routine 12/01/2005 9:10 EST COMPREHENSIVE METABOLIC PANEL (CMP) Routine 12/01/2005 9:10 EST documented in this encounter Results * (ABNORMAL) HEMOGLOBIN A1C (12/01/2005 10:23 EST) [facility] POCT Hgb A1C 5.8(H) 4.5 - 5.7 % [facility] Comment:Test performed at [facility] 12/01/2005 10:2 3 EST 12/08/2005 10:23 EST Donte Hugo [facility] CHEMISTRY & BL OOD GAS ORDERABLES Final Result [facility] [address] [place] [address] * INSULIN (12/01/2005 9:10 EST) [facility] Insulin 11.8 6.0 - 27.0 uIU/ml [facility] Comment:Fasting reference ra nge 12/01/2005 9:10 EST 12/01/2005 9:11 EST Donte Hugo [facility] CHEMISTRY & BL OOD GAS ORDERABLES Final Result [facility] [address] [place] [address] * (ABNORMAL) COMPREHENSIVE METABOLIC PANEL (12/01/2005 9:10 EST) Potassium 4.2 3.6 - 5.2 mEq/L [facility] Sodium 140 136 - 145 mEq/L [facility] Chloride 100 96 - 110 mEq/L [facility] CO2 30 24 - 32 mEq/L [facility] Total Alkaline Phosphatase 115(L) 130 - 525 U/L [facility] Bilirubin, Total 0.6 0.0 - 1.4 mg/dl [facility] AST 38 16 - 38 U/L [facility] ALT 60(H) 10 - 45 U/L [facility] Albumin 4.9 3.0 - 5.5 g/dl [facility] Total Protein 8.2 6.3 - 8.6 g/dl [facility] Creatinine 1.1 0.6 - 1.2 mg/dl [facility] BUN 13 8 - 21 mg/dl [facility] Calcium 9.3 8.5 - 10.5 mg/dl [facility] Calculated Calcium 8.8 8.5 - 10.5 mg/dl [facility] Glucose, Serum 96 70 - 110 mg/dl [facility] Fasting? Yes [facility] Albumin/Globulin Ratio 1.5 [facility] 12/01/2005 9:10 EST 12/01/2005 9:11 EST Donte Hugo [facility] CHEMISTRY & BL OOD GAS ORDERABLES Final Result [facility] [address] [place] [address] documented in this encounter Visit Diagnoses Not on filedocumented in this encounter
--- OUTSIDE RECORDS SUMMARY | 2024-11-28 16:31 | XMS_ITS | Encounter Summary ---
Author Organization [facility] Address [address] [place] [address] Care Team Providers Care Director Of Customer Service Name Role Phone Antonio Wilde Primary Care Provider Katherine moreno Encounter Details Date Type Department Care Team (Late st Contact Info) Description 05/30/2024 Transcribe Orders [facility] Lab - Main [place] [address] [place] [address] Dhiraj Smith, [facility] [address] [place] [address] [place] [id number] Social History Tobacco Use Types Packs/Day Years [...] Description 12/06/2024 14:45 EST Rehab Therapy Visit [facility] Rehabilitation Therapy [address] [place] [address] Anita Power, OT [address] [place] [address] 12/13/2024 15:45 EST Rehab Therapy Visit [facility] Therapy [address] [place] [address] Anita Power, OT [address] [place] [address] 12/20/2024 16:30 EST Rehab Therapy Visit [facility] Rehabilitation Therapy [address] [place] [address] Anita Power, OT [address] [place] [address] 12/27/2024 16:30 EST Rehab Therapy Visit [facility] Rehabilitation Therapy [address] [place] [address] Anita Power, OT [address] [place] [address] documented as of this encounter Visit Diagnoses Not on filedocumented in this encounter Care Teams Director Of Customer Service Relationship Specialty Start Date End Date Antonio Wilde PA PCP - General 09/25/15 documented as of this encounter
--- OUTSIDE RECORDS SUMMARY | 2024-11-28 16:31 | XMS_ITS | Encounter Summary ---
Author Organization [facility] Address [address] [place] [address] Care Team Providers Care Gauger Chief Name Role Phone Unavailable Primary Care Provider Unavailabl e Encounter Details Date Type Department Care Team (Late st Contact Info) Description 07/26/2007 [facility] Only [facility] [address] [place] [address] Unknown, Provider, Social History Tobacco Use Types Packs/Day Years [...] [facility] Rehabilitation Therapy [address] [place] [address] Anita Power, OT [address] [place] [address] 12/13/2024 15:45 EST Rehab Therapy Visit [facility] Rehabilitation Therapy [address] [place] [address] Anita Power, HEATHER [address] [place] [address] 12/20/2024 16:30 EST Rehab Therapy Visit [facility] Rehabilitation Therapy [address] [place], [place] [address] Anita Power, OT [address] [place] [address] 12/27/2024 16:30 EST Rehab Therapy Visit [facility] Rehabilitation Therapy [address] [place] [address] Anita Power, OT [address] [place] [address] documented as of this encounter Procedures Procedure Name Priority Date/Time Associated Diagnosis Comments FERRITIN Routine 07/26/2007 7:37 EDT documented in this encounter Results * FERRITIN (07/26/2007 7:37 EDT) Ferritin 229 22 - 322 ng/mL [facility] 07/26/2007 7:37 EDT 07/26/2007 20:21 EDT us Provider Unknown CHEMISTRY & BLOOD GAS ORDERA BLES Final Result [facility] [address] [place] [address] documented in this encounter Visit Diagnoses Not on filedocumented in this encounter
--- OUTSIDE RECORDS SUMMARY | 2024-11-28 16:31 | XMS_ITS | Encounter Summary ---
Author Organization [facility] Address [address] [place] [address] Care Team Providers Care Decay Control Operator Name Role Phone Unavailable Primary Care Provider Unavailabl e Encounter Details Date Type Department Care Team (Late st Contact Info) Description 12/01/2005 Before PRISM Converted Visit (Maple) [facility] conversion [address] [place] [address] Donte Hugo [facility] [address] [place] [id number] Social History Tobacco Use Types Packs/Day Years Used Date Smoking Tobacco: Never Assessed Sex and Gender Information Value Date Recorded Sex Assigned at Male 10/19/2024 18:14 EST Legal Sex Male 17:53 EST Gender Identity Not on file Sexual Orientation Not on file documented as of this encounter Progress Notes * Donte Hugo MD - 01/14/2010 7608 EST PROGRESS/FOLLOWUP NOTE- 12/01/2005 December 01, 2005 Get Gutierrez MD [address] [place] [address] [place] [address] Gutierrez: I had the pleasure of seeing our mutual patient Wilson Monteiro on December 01, 2005, in continuing followup of his type 2 diabetes mellitus. Wilson is now 15 years and six months old and was diagnosed with diabetes approximately one month ago. His father accompanied him to the visit. This is Wilson's first visit back to the diabetes clinic since his diagnosis. Under the guidance of his father, Wislon has been successful at instituting all of the lifestyle changes that we recommended at our last visit. He has been keeping to the meal plan that was outlined, with respect to both carbohydrate and caloric intake. He has dramatically reduced screen time to 1.5- 2.5 hours per day with an additional 1 hour of video games. Of note, during one of the hours of TV watching, he will be on the treadmill every day walking 2 miles. He will walk 2- 1/2 miles every day on weekends. Father has been assuring that Wilson keeps to the lifestyle changes. Wilson finds the change in diet most diffi cult. He notes that heis very hungry after school and would like a snack. Despite this, he insists that he has kept to the meal plan. He has been healthy with no interval illnesses. A thorough reviewof systems was noncontributory. The nocturia is unchanged at once or twice per night. He has no daytime polyuria or polydipsia. His only current medications are Flonase daily, BenzaClin daily and occasionally a multivitamin. On physical examination, Wilson appeared comfortable and well hydrated. His height was 170.1 cm and his weight was 86 kg. This represents a 1.3 kg weight loss in a little less than a month. Vital signs revealed a blood pressure of 128/82 with a resting pulse of 68. The remainder of the physical examination was notable only for the early acanthosis nigricans on the neck and the striae, which are unchanged in quality. Review of all available blood glucose records reveals testing 2- 3 times per day. Of note, the fasting readings over the last week are now well below 100. The random and 2- hour postprandial readingsare mostly between 100- 130. There are a few occasional spikes to the 200- 300 range, but these arerare and certainly less frequent over the last week. Hemoglobin A1C today was 5.8% indicating excellent blood glucose control and representing a significant improvement in just a little less than a month. Wilson and his father have been successful at modifying the lifestyle and there has been a dramatic improvement in both weight and blood glucose control. I explained to Wilson that, at this point, the changes that he has made have helped him avoid the need for medications to control his blood glucose. I encouraged him to continue to maintain these lifestyle changes, as this will be needed in the long run to avoid the need for pharmacotreatment of his diabetes. He will continue to test with the same frequency until our next visit in 3 months. If at that visit he maintains excellent blood glucosecontrol and is able to maintain the lifestyle changes, then we will consider decreasing the frequency of blood glucose testing. Father had concerns regarding Wilson's ability to maintain these lifestyle changes when he gets older. I explained to father that, at this time, assuring a healthy environment at home is important andwe will work with Wilson to help him understand the importance of maintaining these lifestyle changes in the long run. I will see Wilson again in clinic in 3 months. I asked father to contact me if he should notice the fasting readings consistently above 120 or the random or postprandial readings greater than 180. Thank you for allowing me to participate in the care of this patient. If you have any further questions or concerns, please do not hesitate to contact me. Sincerely, Signed by Donte Hugo MD 12/07/2005 11:34 [place] [facility] [phone] James Zimakas, MD Dnote Hugo MD Division of Pediatric Endocrinology [phone] - Donte Hugo MD P - O3 Job ID: [id number] Document ID: [id number] cc: Get Gutierrez MD documented in this encounter Plan of Treatment Upcoming Encounters Date Type Department Care Team (Late st Contact Info) Description 12/06/2024 14:45 EST Rehab Therapy Visit [facility] Rehabilitation Therapy [address] [place] [address] Anita Power OT [address] [place] [address] 12/13/2024 15:45 EST Rehab Therapy Visit [facility] Rehabilitation Therapy [address] [place] [address] Anita Power OT [address] [place] [address] 12/20/2024 16:30 EST Rehab Therapy Visit [facility] Rehabilitation Therapy [address] [place] [address] Anita Power, OT [address] [place] [address] 12/27/2024 16:30 EST Rehab Therapy Visit [facility] Rehabilitation Therapy [address] [place] [address] Anita Power, OT [address] [facility] [place] [address] documented as of this encounter Visit Diagnoses Not on filedocumented in this encounter
--- OUTSIDE RECORDS SUMMARY | 2024-11-28 16:31 | XMS_ITS | Encounter Summary ---
Author Organization [facility] Address [address] [place] [address] Care Team Providers Care Customer Service Representative Teacher Name Role Phone Unavailable Primary Care Provider Unavailabl e Encounter Details Date Type Department Care Team (Late st Contact Info) Description 03/02/2006 Before PRISM Converted Visit (Maple) [facility] - [facility] conversion [address] [place] [address] Donte Hugo [facility] [address] [place] [id number] Social History Tobacco Use Types Packs/Day Years Used Date Smoking Tobacco: Never Assessed Sex and Gender Information Value Date Recorded Sex Assigned at Male 10/19/2024 18:14 EST Legal Sex Male 17:53 EST Gender Identity Not on file Sexual Orientation Not on file documented as of this encounter Progress Notes * Donte Hugo MD - 10/24/2009 6637 EST March 02, 2006 Get Gutierrez MD [address] [place] [address] [place] [address] Gutierrez: I had the pleasure of seeing our mutual patient Wilson Monteiro on March 02, 2006 in continuing followup of his type 2 diabetes mellitus. Wilson is now 15 years and 9 months old and was diagnosed with diabetes in October 2005. His father accompanied himto the visit. Wilson has been healthy since our last visit with no interval illnesses. He reports no concerns today in clinic. A thorough review of systems was noncontributory. He does feel his energy level has improved. He is now working out at the school gym every other day. He is no longer using his treadmill at home. He admits that he is lax with increased screen time of approximately three hours per day. He feels that he has been consistent with his diet and continues to eat less. He typically eats threemeals and one candy snack per day which consists of two to three pieces of hard candy which are apparently sugar free. He has not been consistent with his home blood glucose monitoring and is now fransisca ting at most once per day and will go several days without testing at all. The readings are all fasting morning readings and average 104. The highest reading most recently was 139. Most of the readings, however, are between 90 and 110. He is no longer having any polyuria, polydipsia or nocturia. On physical exam Wilson appeared comfortable and well hydrated. His height was 170.3 cm and his weight was 84.5 kg. This represents a 1.5 kg weight loss since our last visit. His calculated BMI is now29.2. Vital signs revealed a blood pressure of 124/80 with a resting pulse of 80. The remainder of the physical exam was notable only for the light acanthosis nigricans of the neck. Hemoglobin A1C today was 6.0% indicating excellent blood glucose control but representing a slight increase from his last reading. Wilson has been successful at maintaining most of the lifestyle changes but has slipped most recently particularly with respect to self blood glucose monitoring and increased screen time. We reviewed the importance of maintaining these lifestyle changes to control his diabetes mellitus and to avoid the need for pharmacotherapy. For our next visit, Wilson will work on testing his blood sugar three times a day (a.c. breakfast, a.c. supper and h.s.) and father has agreed to supervise and remind Wilson. He will also target anadditional 30 minutes of physical activity at home on a daily basis. He will likely choose to use the treadmill while watching his favorite TV shows. Wilson had the opportunity to meet with our vehicle assembler, Natalya Mart, [place], today to review the diet. I will see Wilson again in clinic in three months. I have asked that Wilson contact me sooner if he should notice that his fasting blood glucose readings are consistently above 110 or his daytime readings are consistently above 140. Thank you for allowing me to participate in the care of this patient. If you have any further questions or concerns, please do not hesitate to contact me. Sincerely, Signed by Donte Hugo MD 03/08/2006 11:39 [place] Hugo, [facility] [phone] James Zimakas, MD Donte Hugo MD Division of Pediatric Endocrinology [phone] - Donte Hugo MD P - O1 Job ID: [id number] Document ID: [id number] cc: MD Get Boyd MD documented in this encounter Plan of Treatment Upcoming Encounters Date Type Department Care Team (Late st Contact Info) Description 12/06/2024 14:45 EST Rehab Therapy Visit [facility] Rehabilitation Therapy [address] [place] [address] Anita Power, OT [address] [place] [address] 12/13/2024 15:45 EST Rehab Therapy Visit [facility] Therapy [address] [place] [address] Anita Power OT [address] [place] [address] 12/20/2024 16:30 EST Rehab Therapy Visit [facility] Rehabilitation Therapy [address] [place] [address] Anita Power, OT [address] [place] [address] 12/27/2024 16:30 EST Rehab Therapy Visit [facility] Therapy [address] [place] [address] Anita Power OT [address] [place] [address] documented as of this encounter Visit Diagnoses Not on filedocumented in this encounter
--- OUTSIDE RECORDS SUMMARY | 2024-11-28 16:31 | XMS_ITS | Encounter Summary ---
Author Organization [facility] Address [address] [place] [address] Care Team Providers Care Moving Worker Name Role Phone Antonio Wilde Primary Care Provider Katherine moreno Encounter Details Date Type Department Care Team (Late st Contact Info) Description 07/01/2023 Lab Requisition [facility] Pathology & Laboratory Medicine - [address] [address] Outr Resulting Lab, Provider Social History Tobacco [...] Visit [facility] Rehabilitation Therapy [address] [place] [address] Anita Power, OT [address] [place] [address] 12/13/2024 15:45 EST Rehab Therapy Visit [facility] Rehabilitation Therapy [address] [place] [address] Anita Power, OT [address] [place] [address] 12/20/2024 16:30 EST Rehab Therapy Visit [facility] Rehabilitation Therapy [address] [place] [address] Anita Power, OT [address] [place] [address] 12/27/2024 16:30 EST Rehab Therapy Visit [facility] Therapy [address] [facility] [place] [address] Anita Power, OT [address] [place] [address] documented as of this encounter Procedures Procedure Name Priority Date/Time Associated Diagnosis Comments LYME AB Routine 06/30/2023 14:36 EDT documented in this encounter Results * LYME AB (06/30/2023 14:36 EDT) Lyme Ab Negative Negative 07/02/2023 12:22 EDT [facility] Blood VENOUS BLOOD / Unknown 06/30/2023 14:36 EDT 07/01/2023 18:26 EDT us Provider Outr Resulting Lab IMMUNOLOGY AND SEROL OGY ORDERABLES Final Result [facility] [address] [place] [address] documented in this encounter Visit Diagnoses Not on filedocumented in this encounter Care Teams Moving Worker Relationship Specialty Start Date End Date Antonio Wilde PA PCP - General 09/25/15 documented as of this encounter
--- OUTSIDE RECORDS SUMMARY | 2024-11-28 16:31 | XMS_ITS | Encounter Summary ---
Author Organization [facility] Address [address] [place] [address] Care Team Providers Care Credit Support Counselor Name Role Phone Antonio Wilde Primary Care Provider Katherine moreno Encounter Details Date Type Department Care Team (Late st Contact Info) Description 10/31/2022 Lab Requisition [facility] Pathology & Laboratory Medicine - [address] [address] Outr Resulting Lab, Provider Social History Tobacco [...] Description 12/06/2024 14:45 EST Rehab Therapy Visit [facility] Rehabilitation Therapy [address] [place] [address] Anita Power, OT [address] [place] [address] 12/13/2024 15:45 EST Rehab Therapy Visit [facility] Rehabilitation Therapy [address] [place] [address] Anita Power, OT [address] [place] [address] 12/20/2024 16:30 EST Rehab Therapy Visit [facility] Rehabilitation Therapy [address] [place] [address] Anita Power, OT [address] [place] [address] 12/27/2024 16:30 EST Rehab Therapy Visit [facility] Rehabilitation Therapy [address] [place] [address] Anita Power, OT [address] [place] [address] documented as of this encounter Procedures Procedure Name Priority Date/Time Associated Diagnosis Comments HIV 1/2 ANTIGEN AND ANTIBODY, 4TH GENERATION Routine 10/30/2022 15:25 EST documented in this encounter Results * HIV 1/2 ANTIGEN AND ANTIBODY, 4TH GENERATION (10/30/2022 15:25 EST) Pathologist [facility] HIV 1 and 2 Antibody/p24 Antigen, 4th Generation Negative Negative 11/02/2022 9:54 EST [facility] Comment:If acute HIV-1 infec tion is suspected in a high risk patient, submit plasma specimen for HIV-1 RNA quantitation test. Blood VENOUS BLOOD / Unknown 10/30/2022 15:25 EST 11/01/2022 17:09 EST Narrative [facility] - 11/02/2022 9:54 EST Fourth Generation assay performed on the Siemens Centaur XPT. us Provider Outr Resulting Lab IMMUNOLOGY AND SEROL OGY ORDERABLES Final Result [facility] [address] [place] [address] documented in this encounter Visit Diagnoses Not on filedocumented in this encounter Care Teams Credit Support Counselor Relationship Specialty Start Date End Date Antonio Wilde PA PCP - General 09/25/15 documented as of this encounter
--- OUTSIDE RECORDS SUMMARY | 2024-11-28 16:31 | XMS_ITS | Encounter Summary ---
Author Organization [facility] Address [address] [place] [address] Care Team Providers Care Director Of Learning Name Role Phone Antonio Wilde Primary Care Provider Katherine moreno Encounter Details Date Type Department Care Team (Late st Contact Info) Description 12/09/2020 Lab Requisition [facility] Pathology & Laboratory Medicine - [address] [address] Alec Schwartz MD [address] [place] [phone] Encounter for other general examination Social History Tobacco Use Types Packs/Day Years [...] Description 12/06/2024 14:45 EST Rehab Therapy Visit [facility] Rehabilitation Therapy [address] [place] [address] Anita Power, OT [address] [place] [address] 12/13/2024 15:45 EST Rehab Therapy Visit [facility] Rehabilitation Therapy [address] [place] [address] Anita Power, OT [address] [place] [address] 12/20/2024 16:30 EST Rehab Therapy Visit [facility] Rehabilitation Therapy [address] [place] [address] Anita Power, OT [address] [place] [address] 12/27/2024 16:30 EST Rehab Therapy Visit [facility] Rehabilitation Therapy [address] [place] [address] Anita Power, OT [address] [place] [address] documented as of this encounter Procedures Procedure Name Priority Date/Time Associated Diagnosis Comments SURGICAL PATHOLOGY Today 12/08/2020 15 :50 EST documented in this encounter Results * SURGICAL PATHOLOGY (12/08/2020 15:50 EST) Final Diagnosis A. APPENDIX, APPENDECTOMY: - Acute appendicitis and periappendicitis 12/16/2020 18:20 [facility] Attestation There was significant resident/fellow involvement in the diagnostic evaluation of this case. By the signature below, the attending physician certifies that they have personally conducted a gross and/or microscopic examination of the described specimens and rendered or confirmed the above diagnosis. 12/16/2020 18:20 [facility] at 1819 Clinical History Appendicitis 12/16/2020 18:20 [facility] Gross Description A. Received in formalin labelled with proper patient identification (initials P, E) and appendix is an appendix (8.2 cm in length, ranging from 0.9 cm to 1.5 cm in diameter), with a small amount of attached mesoappendix. The proximal margin is stapled. The serosa is frank-brown and hemorrhagic with sanford-white fibrinous adhesions located centrally. The cut surface is sanford-frank. The wall ranges from 0.1 cm to 0.3 cm in thickness. A perforation site is not identified. The lumen ranges from 0.5 cm to 1.3 cm in diameter. Two fecaliths are identified The proximal margin is inked blue. The section adjacent to the stapled proximal margin, 2 field support representative cross sections and one half of the longitudinally bisected distal tip are submitted in A1. LEIA KNOX(ASCP) 12/10/2020 8:00 12/16/2020 18:20 EST [facility] Resident/Ramin w: Kenton Doe MD 12/16/2020 18:20 EST [facility] Performing Lab [facility] 18:20 EST [facility] Scanned Images 12/16/2020 18:20 EST [facility] Tissue ENTIRE APPENDIX / Unknown 12/08/2020 15:50 EST 12/09/2020 23:20 EST us Alec Schwartz MD PATHOLOGY ORDERABLES Fi nal Result [facility] [address] [place] [address] documented in this encounter Visit Diagnoses Diagnosis Encounter for other general examination documented in this encounter Care Teams Director Of Learning Relationship Specialty Start Date End Date Antonio Wilde PA PCP - General 09/25/15 documented as of this encounter
--- OUTSIDE RECORDS SUMMARY | 2024-11-28 16:31 | XMS_ITS | Encounter Summary ---
Author Organization [facility] Address [address] [place] [address] Care Team Providers Care Rubber Cutter Name Role Phone Unavailable Primary Care Provider Unavailabl e Encounter Details Date Type Department Care Team (Late st Contact Info) Description 06/07/2006 Before PRISM Converted Visit (Maple) [facility] - Maple conversion [address] [place] [address] Efren Lombardo MD [address] [place] [phone] Social History Tobacco Use Types Packs/Day Years Used Date Smoking Tobacco: Never Assessed Sex and Gender Information Value Date Recorded Sex Assigned at Male 10/19/2024 18:14 EST Legal Sex Male 17:53 EST Gender Identity Not on file Sexual Orientation Not on file documented as of this encounter Progress Notes * Efren Lombardo MD - 11/08/2009 2239 EST PROGRESS/FOLLOWUP NOTE - 06/07/2006 June 07, 2006 Nereida DUPREE [facility] [address] [place] [id number] Dear Mr. Trevinoois: I saw Wilson on June 07, 2006. He is a 16- year- old who I initially saw as a with supraventricular tachycardia. 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 Over a period of time his myopathy resolved and he has had few,if any, problems with his recurrent supraventricular tachycardia. His last visit herewas about three years ago when he came to see us after having an episode of tachycardia lasting through the night.The exact mechanism of his tachycardia was not documented but he has had no recurrences over the last three years. He comes back today because he has had several episodes of chest pain. He describes an upper chest, diffuse aching that occurs almost exclusively at work. 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 However, his first episode occurred back in March whenhe was at home. Currently, he says he can do normal activity at home and never develop chest pain. It does not seem to be specifically exertional. He gets the chest pain when he is at work, usually in the afternoon. He does not feel his heart racing or skipping beats at the time. The pain is not exacerbated by breathing or particular movements. He does not describe radiation of the pain into his back, neck or arm. The pain resolves on its own. It sounds as though it is mildly uncomfortable. In addition to his pain, he is being followed by Dr. Hugo for a question of type II diabetes. He says that he consumes fairly large quantities of soda including caffeine- containing soda but hasno other unusual dietary features. He denies coughing, wheezing or other respiratory symptoms. He has had no dizziness or fainting. His health has otherwise been relatively good. On physical examination today his height was 171 cm, the 25th to 50th percentile, and his weight 85.3 kg, the 90th to 97th percentile. The blood pressure in the right arm was 152/64. His pulse was 66and his resting respiratory rate was 18. His femoral pulses felt strong and his extremities were warm and well perfused. His liver did not feel enlarged. No abdominal masses were appreciated. His precordium was quiet. Pressing on his precordium elicited no discomfort. Squeezing his ribs also failedto elicit any tenderness. His lungs sounded clear with symmetric aeration. His neck veins were not distended. His thyroid did not feel enlarged. His lips and nail beds were pink. He had no clubbing or peripheral edema. He had normal first heart sound and physiologically split second heart sound of normal intensity. He had no significant murmurs. His electrocardiogram showed and ectopic atrial rhythm but was otherwise normal. There was no evidence ischemia or unusual hypertrophy. In summary, Angels pain does not sound cardiac in nature. It is not routinely exertional and seemsto be occurring only at work. I thought it is possible this could be relatedto the chemical staff physical therapist and might be a manifestation of some mild reactive airway disease but I do not think it is cardiacin nature. He has no underlying structural or functional heart abnormalities at the present time. Of note, he was hypertensive at today's visit and I would suggest that this be followed up in your clinic but I do not think it has any relationship to his present symptoms. If he has symptoms of tachycardia or routine exertional chest pain, we would like to see him again. I have not currently scheduled him for a return appointment since his tachycardia seems to be under good control. Overall, I agree with your assessment that this is very unlikely to be cardiac- type chest pain and I do not thinkwe need to change the general recommendations for his health care at present. This information was explained to Wilson and his father. Please give me a call if you have any questions about today's evaluation or our recommendations. Thanks for sending Wilson back to us. Sincerely, Signed by Efren Lombardo MD 06/11/2006 16:19 Randall [facility] [id number] B Yeager, MD Efren Lombardo MD Division of Pediatric Cardiology [phone] - Efren Lombardo MD P - O1 Job ID: [id number] Document ID: [id number] cc: LEIA Becerril documented in this encounter Plan of Treatment Upcoming Encounters Date Type Department Care Team (Late st Contact Info) Description 12/06/2024 14:45 EST Rehab Therapy Visit [facility] [address] [place] [address] Anita Power, OT [address] [place] [address] 12/13/2024 15:45 EST Rehab Therapy Visit [facility] Therapy [address] [place] [address] Anita Power, OT [address] [facility] [facility] [place] [address] 12/20/2024 16:30 EST Rehab Therapy Visit [facility] [address] [place] [address] Anita Power, OT [address] [place] [address] 12/27/2024 16:30 EST Rehab Therapy Visit [facility] [address] [place] [address] Anita Power, OT [address] [facility] [place] [address] documented as of this encounter Visit Diagnoses Not on filedocumented in this encounter
--- OUTSIDE RECORDS SUMMARY | 2024-11-28 16:31 | XMS_ITS | Encounter Summary ---
Author Organization [facility] Address [address] [place] [address] Care Team Providers Care Cut Lace Machine Operator Name Role Phone Antonio Wilde Primary Care Provider Katherine moreno Encounter Details Date Type Department Care Team (Late st Contact Info) Description 04/29/2022 Lab Requisition [facility] Pathology & Laboratory Medicine - [address] [address] Outr Resulting Lab, Provider Social History Tobacco [...] Visit [facility] Therapy [address] [place] [address] Anita Power, OT [address] [place] [address] 12/13/2024 15:45 EST Rehab Therapy Visit [facility] Therapy [address] [place] [address] Anita Power, OT [address] [place] [address] 12/20/2024 16:30 EST Rehab Therapy Visit [facility] Therapy [address] [place] [address] Anita Power, OT [address] [place] [address] 12/27/2024 16:30 EST Rehab Therapy Visit [facility] Therapy [address] [facility] [address] Anita Power, OT [address] [facility] [place] [address] documented as of this encounter Procedures Procedure Name Priority Date/Time Associated Diagnosis Comments FECAL BACTERIAL PATHOGENS BY PCR Routine 04/29/2022 10:02 EDT documented in this encounter Results * FECAL BACTERIAL PATHOGENS BY PCR (04/29/2022 10:02 EDT) Salmonella PCR Negative Negative 04/30/2022 10:40 EDT [facility] Shigella/Enteroin vasive E. coli Negative Negative 04/30/2022 10:40 EDT [facility] HN LAB CAMPYLOBACTER PCR Negative Negative 04/30/2022 10:40 EDT [facility] Shiga Toxin PCR Negative Negative 10:40 EDT [facility] Feces SPECIMEN FROM RECTUM / Unknown Stool Collect / Unknown 04/29/2022 10:02 EDT 04/29/2022 22:16 EDT us Provider Outr Resulting Lab MICROBIOLOGY - GENER AL ORDERABLES Final Result [facility] [address] [place] [address] documented in this encounter Visit Diagnoses Not on filedocumented in this encounter Care Teams Cut Lace Machine Operator Relationship Specialty Start Date End Date Antonio Wilde PA PCP - General 09/25/15 documented as of this encounter
--- OUTSIDE RECORDS SUMMARY | 2024-11-28 16:31 | XMS_ITS | Encounter Summary ---
Author Organization [facility] Address [address] [place] [address] Care Team Providers Care Fruit Grower Name Role Phone Antonio Wilde Primary Care Provider Katherine moreno Encounter Details Date Type Department Care Team (Late st Contact Info) Description 05/30/2024 Transcribe Orders [facility] Lab - Main [address] [place] [address] Dhiraj Smith, [facility] [address] [place] [address] [place] [id number] Social History Tobacco Use Types Packs/Day Years [...] Description 12/06/2024 14:45 EST Rehab Therapy Visit [facility] Therapy [address] [place] [address] Anita Power, OT [address] [place] [address] 12/13/2024 15:45 EST Rehab Therapy Visit [facility] Therapy [address] [place] [address] Anita Power, OT [address] [place] [address] 12/20/2024 16:30 EST Rehab Therapy Visit [facility] [address] [place] [address] Anita Power, OT [address] [place] [address] 12/27/2024 16:30 EST Rehab Therapy Visit [facility] [address] [place] [address] Anita Power, OT [address] [place] [address] documented as of this encounter Visit Diagnoses Not on filedocumented in this encounter Care Teams Fruit Grower Relationship Specialty Start Date End Date Antonio Wilde PA PCP - General 09/25/15 documented as of this encounter
--- OUTSIDE RECORDS SUMMARY | 2024-11-28 16:31 | XMS_ITS | Encounter Summary ---
Author Organization [facility] Address [address] [place] [address] Care Team Providers Care Bricklayer Paving Brick Name Role Phone Unavailable Primary Care Provider Unavailabl e Encounter Details Date Type Department Care Team (Late st Contact Info) Description 11/03/2005 Before PRISM Converted Visit (Maple) [facility] - Maple conversion [address] [place] [address] Donte Hugo [facility] [address] [place] [id number] Social History Tobacco Use Types Packs/Day Years Used Date Smoking Tobacco: Never Assessed Sex and Gender Information Value Date Recorded Sex Assigned at Male 10/19/2024 18:14 EST Legal Sex Male 17:53 EST Gender Identity Not on file Sexual Orientation Not on file documented as of this encounter Consult Notes * Donte Hugo MD - 01/16/2010 0408 EST CONSULTATION - 11/03/2005 November 03, 2005 Get Gutierrez MD [address] [place] [address] [place] [address] Gutierrez: I had the pleasure of seeing your patient Wilson Monteiro in the endocrinology clinic on November 03, 2005 in initial consultation of his new onset diabetes mellitus. His father and stepmother accompany him to the visit. As you well know, Wilson is a pleasant 15- year and five- month- old young man. He presented to [facility] June of [facility] for a routine health supervision visit and had the complaint of stretch matos. These have been present for over a year. Based on his weight, family history and the stretch matos, you obtained some screening investigations including normal thyroid function tests, fasting lipid panel notable for elevated LDL of 135 and HDL of 30, cholesterol of 212 and triglycerides of 233,and a fasting blood glucose of101. The fasting glucose was repeated and was 111 with a urinalysis that showed 2+ glucose. You then arranged for some nutritional counseling and encouraged lifestyle changes as well as blood glucose checks once to twice per week. The parents state that they were usingfather's glucometer and that the blood glucose readings in the mornings were typically around 110 but that the two- hour postprandials were typically in the mid 200s. We spoke to review this case Bronwyn recommended obtaining a formal oral glucose tolerance test which was performed on October 24, 2005. His fasting glucose was 119 and his two- hour post GGT was 288. His peak glucose was 348 at 60 minutes. His fasting urinalysis was negative for glucose and ketones at that time. He also had a normal electrolyte panel with BUN of 16, creatinine of 1.0, ALT 29, AST slightly elevated at 68, GGT 76 and alkaline phosphatase 130. He recently had hemoglobin A1C which was 6.1% on October 12, 2005. Once the results of the OGGT were made available to me,we arranged for today's evaluation. Retrospectively, Wilson states that he has been having mild polyuria, polydipsia and new onset nocturia once per night since roughly this summer. It was difficult for him to pinpoint an exact onset. There have been to enuretic episodes. He has had polyphagia but denies any weight loss. He denies any abdominal pain, nausea or vomiting, temperature intolerance, skin changes, headaches, blurry vision, irregular bowel movements. The remainder of a thorough review of systems was noncontributory. Puberty started at approximately 11 years of age. The stretch matos have not changed in intensity or number over the last six months. A brief dietary review reveals baseline nutritional habits that are quite poor with excessive carbohydrate and caloric intake, frequent snacking and large portion sizes. He does not participate in any regular organized physical activities. He watches reportedly five to six hours of t.v. per weeknight and over seven hours on average on the weekends. Wilson is currently in grade 9 and is reportedly an A and B student. He states that he has a good group of friends. He is not sexually active. He denies any cigarette, alcohol or drug use. He lives with his father, stepmother and half brother. Biological mother is not involved in his care. Wilson's past medical history is notable for irregular heartbeat diagnosed soon after . He was treated with digoxin for the first year of his life and continues to be followed by Dr. Lombardo for this, although there have been no recurrences of the irregular heartbeat. He has had no previous hospitalizations or surgeries. He was born a couple of weeks premature by C- section for distress. He was transferred to our hospital due to the above- noted irregular heartbeat. His birthweight was 9 pounds 15 ounces and father cannot recall his length. There were no other issues aside from the heart rhythm in the period. His current medications include Flonase daily and a topical cream for his acne. Family history is notable for father, biological mother, maternal grandfather and a maternal aunt all with type 2 diabetes mellitus. Father also has a history of early heart disease with his first heart attack at 39 years of age and there is a paternal uncle with a heartattack in his 30s. The father is being treated for hypercholesterolemia. His biological mother reportedly has schizophrenia. There is no family history of thyroid or autoimmune disease. Biological mother's height is 5 feet 4 inches and weight roughly 200pounds. She has diabetes, reactive airway disease and schizophrenia. Father's height is 5 feet 5 inches and weight 210 pounds. He has a history of the heart attack and treatment for cholesterol and type 2 diabetes. Wilson has a maternal half brother who is21 years of age andmeasures 5 feet 4 inches and weighs 130 pounds. He is reportedly healthy. On physical exam Wilson appeared comfortable and well hydrated. His height was 170.3 cm and weight was 87.3 kg. This corresponds with calculated BMI of 30.1. Vital signs revealed blood pressure of 124/84 with a resting pulse of 80. His respiratory rate was 12 and effortless. There were no cushingoidfeatures; there were no dysmorphic features. Head and neck exam revealed moist mucous membranes andno lymphadenopathy. He had normal extraocular movements, PERRLA and sharp disks on funduscopy. There was no palpable goiter. Cardiorespiratory exam was unremarkable. Abdominal exam was benign. Neurologic exam was grossly normal with 2+ deep tendon reflexes and downgoing toes. There were no appreciable bony deformities, scoliosis or clubbing. Skin exam was notable for early acanthosis nigricans ofthe neck and striae that were predominantly non- violaceous striae in the axillae bilaterally and on the abdomen. There was no hyperpigmentation of the palmar creases or oral mucosa. Sexual development was rated as Jossue stage V. Review of all available previous growth data reveals linear growth that has plateaued since 13 years of age with a gradual and consistent weight gain from the 90th percentile to its current location above the 97th percentile over this timeframe. Some fasting investigations were obtained today including blood glucose of 107, triglycerides of 236, cholesterol 226, HDL 37 and LDL 142. His urinalysis was negative for glucose and ketones. His hemoglobin A1C was 6.2%. In summary, this is a 15- year and five- month- old young man with diabetes mellitus. At this point, based on his gradual onset, family history, body mass index and the presence of acanthosis nigricans this likely represents evolving type 2 diabetes mellitus. I have obtained some additional investigations with the fasting glucose including insulin and NYLA antibody profiles and insulin and C- peptide levels in an attempt to support the suspicion oftype 2 diabetes mellitus. Given that there are multiple aspects of his lifestyle which could be significantly improved, we will work on these first.He received nutritional counseling today emphasizing both appropriate carbohydrate and caloric intake andwe have come up with a plan to reduce his television screen time by at least 50% and add an additional 30+ minutes of regular physical activity to his daily routine. He will now test his blood glucose before breakfast, before supper and two hours after supper and fax these results in on a weekly basis. I explained that we may possibly need to add oral agents if there is no improvement over the next month. This again would be providing that our additional investigations support the diagnosis of type 2 diabetes rather than type I diabetes. I will see Wilson again in clinic in one month. Thank you for allowing me to participate in the care of this patient. If you have any further questions or concerns, please do not hesitate to contact me. Sincerely, Signed by Donte Hugo MD 11/05/2005 10:31 [place] Hugo, [facility] [id number] James Zimakas, MD Donte Hugo MD Division of Pediatric Endocrinology [phone] - Donte Hugo MD A - O6 Job ID: [id number] Document ID: [id number] cc: Get Gutierrez MD documented in this encounter Plan of Treatment Upcoming Encounters Date Type Department Care Team (Late st Contact Info) Description 12/06/2024 14:45 EST Rehab Therapy Visit [facility] Therapy [address] [place] [address] Anita Power, OT [address] [facility] [place] [address] 12/13/2024 15:45 EST Rehab Therapy Visit [facility] Therapy [address] [facility] [place] [address] Anita Power, OT [address] [facility] [place] [address] 12/20/2024 16:30 EST Rehab Therapy Visit [facility] Therapy [address] [facility] [place] [address] Anita Power, OT [address] [facility] [place] [address] 12/27/2024 16:30 EST Rehab Therapy Visit [facility] Therapy [address] [facility] [place] [address] Anita Power, OT [address] [facility] [place] [address] documented as of this encounter Visit Diagnoses Not on filedocumented in this encounter
--- OUTSIDE RECORDS SUMMARY | 2024-11-28 16:31 | XMS_ITS | Encounter Summary ---
Author Organization [facility] Address [address] [place] [address] Care Team Providers Care Fish Cleaner Machine Tender Name Role Phone Unavailable Primary Care Provider Unavailabl e Encounter Details Date Type Department Care Team (Late st Contact Info) Description 06/07/2006 9:03 EDT Hospital Encounter [facility] [address] [place] [address] Efren Lombardo MD [address] [place] [phone] Social History Tobacco Use Types Packs/Day [...] Visit [facility] Therapy [address] [place], [place] [id number] Anita Power OT [address] [place] [address] 12/13/2024 15:45 EST Rehab Therapy Visit [facility] Therapy [address] [place], [place] [id number] Anita Power OT [address] [place] [address] 12/20/2024 16:30 EST Rehab Therapy Visit [facility] Therapy [address] [place] [address] Anita Power, OT [address] [place] [address] 12/27/2024 16:30 EST Rehab Therapy Visit [facility] Therapy [address] [place] [address] Anita Power, OT [address] [facility] [address] documented as of this encounter Visit Diagnoses Not on filedocumented in this encounter
--- OUTSIDE RECORDS SUMMARY | 2024-11-28 16:31 | XMS_ITS | Encounter Summary ---
Author Organization [facility] Address [address] [place] [address] Care Team Providers Care Sustainable Development Policy Analyst Name Role Phone Unavailable Primary Care Provider Unavailabl e Encounter Details Date Type Department Care Team (Late st Contact Info) Description 07/06/2006 Before PRISM Converted Visit (Maple) [facility] - Maple conversion [address] [place] [address] Donte Hugo [facility] [address] [place] [id number] Social History Tobacco Use Types Packs/Day Years Used Date Smoking Tobacco: Never Assessed Sex and Gender Information Value Date Recorded Sex Assigned at Male 10/19/2024 18:14 EST Legal Sex Male 17:53 EST Gender Identity Not on file Sexual Orientation Not on file documented as of this encounter Progress Notes * Donte Hugo MD - 10/26/2009 192 EST PROGRESS/FOLLOWUP NOTE - 07/06/2006 July 06, 2006 LEIA Becerril [facility] [address] [place] [id number] Dear Mr. Wilde: I had the pleasure of seeing our mutual patient Wilson Monteiro on July 06, 2006, in continuing followup of his type 2 diabetes mellitus. Wilson is now 16 years and 1 month old and was diagnosed with diabetes in October 2005. His father accompanied him to the visit. Wilson has been well since our last visit with no interval illnesses. He informed me that he has transferred his care from Dr. Gutierrez's office to you. 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 Because of his work hours, his screen time has decreased significantly to approximately 1 hour per day. He has no other organized physical activities. An in- detail review of his diet reveals that he is making no effort at making healthier food choices. He is eating out almost every day. He is not making any efforts at portion control.He does state that he is typically drinking water rather than sodas or juices.He denies any polyuria, polydipsia, nocturia or enuresis. He denies any fatigue, abdominal pain, nausea, vomiting, irregular bowel movements, temperature intolerance, skin changes. He continues to have headaches every other day, which are described as right sided, frontal, throbbing, typically 3 out of 10. These are not associated with any nausea, vomiting, visual disturbances or awakening from sleep. They resolve with ibuprofen. Wilson admits that his frequency of blood glucose monitoring at home has decreased significantly andthat he is typically testing, at most, once per day. To date, his diabetes has been controlled primarily with attempts at lifestyle changes. His onlyprescribed medications are Flonase, which he rarely takes, and a topical acne cream. On physical examination, Wilson appeared comfortable and well hydrated. His height was 170.4 cm and his weight was 86.3 kg. This represents a 1.8 kg weight gain. His BMI is 29.7 and this represents a 0.5 BMI gain. His manual blood pressure was 124/68 with a resting pulse of 76. He did not appear cushingoid. Head and neck exam revealed moist mucous membranes and no lymphadenopathy. He had normal extraocular movements, PERRLA and sharp discs on funduscopy. There was no palpable goiter. Cardiorespiratory exam was unremarkable. Abdominal exam was benign. Neurologic exam was grossly normal. Skin temperature, texture and turgor were normal. There was some very early acanthosis nigricans of the neck. There were striae in the axilla and flanks bilaterally. There was no hyperpigmentation of the skin, palmar creases or oral mucosa. Review of all available blood glucose records reveals that Wilson has been testing, at most, once per day over the last month and, previously, approximately twice per day. His 4- month averages for breakfast have been 120, for lunch 140, for supper 130 and for bedtime 104. However, most recently, there have been more frequent readings in the 200- 250 range. Wilson presented fasting to our office today. He had last eaten approximately 12 hours ago. Investigations were obtained including an elevated fasting glucose of 117, normal electrolytes, BUN, creatinine, ALT and AST. His fasting triglycerides were 169 and his LDL was 170 with an HDL of 43. Urinalysis was negative for glucose. A urine for microalbumin was 5.6. Hemoglobin A1C was elevated at 6.2%. Based on review of the blood glucose records from home and this morning's 12- hour fasting glucose of 117, I am concerned that Wilson's diabetes control has deteriorated since our last visit. He has made very little efforts at maintaining any lifestyle changes for which he has been successful at achieving weight loss in the past. As a result, his weight has increased ashas his BMI since our last visit. His LDL is worrisome and would be in the range where pharmacotherapy would be considered if some intensive lifestyle changes do not produce results in 6 months. I had a long discussion today with both Wilson and his father regarding my concerns of progression of his type 2 diabetes mellitus as well as complications related to his poor lifestyle choices and overweight. I was quite concerned when Wilson and his father stated that you question the diagnosis of type 2 diabetesmellitus. In my professional opinion, there is no question that Wilson has type 2 diabetes mellitus and has been able to halt progression with some lifestyle changes, but I am concerned given themost recent deterioration in his eating habits and no regular, organized physical activity that thetype 2 diabetes mellitus will progress and possibly to a stage needing medical therapy in the near future. I am also concerned by his dyslipidemia. Wilson has asked that you follow these concerns through your office,as the travel to our clinic is disruptive to the family. I explained my concerns of someone following him if they do not agree with the diagnosis of type 2 diabetes mellitus. Wilson hashad a convincing oral glucose tolerance test at the time of diagnosis as well as frequent readings in the diabetic range based on his home blood glucose monitoring. His hemoglobin A1Cs have also always been above the normal range on our visits here in clinic. I explained that while his diabetes is currently in the early stages and has been controlled with lifestyle changes in the past, the risk for progression is significant. It is Wilson and his father's choice as to where they are to be followed, but I would recommend thatWilson continue to test his blood glucose every other day prior to breakfast and 2 hours after supper. I advised them that if the readings are consistently above 120 at breakfast or consistently after supper or if he were to develop any symptoms suggestive of diabetes mellitus, then therapy would need to be started. He should have hemoglobin A1Cs measured at a minimum of every 4 months and consideration for pharmacotherapy of his dyslipidemia if he does not make substantial improvements with lifestyle changes alone over the next 6 months. Wilson and his father had an opportunity to meet with our molder fitting Natalya Mart RD, CDE today to review appropriate dietary recommendations. I encouraged Wilson and his father to contact your office to see if you would be willing to tacklethese issues, and they have decided not to arrange for followup in this clinic at this time. I sincerely hope that after reading this letter, you share these concerns and follow up on them closely, as I am worried regarding Wilson's risk for progression of all of the above complications. Thank you for allowing me to participate in the care of this patient. If you have any further questions or concerns, please do not hesitate to contact me. Sincerely, Signed by Donte Hugo MD 07/13/2006 11:06 [place] Hugo, [facility] [id number] James Zimakas, MD Donte Hugo MD Division of Pediatric Endocrinology [phone] - Donte Hugo MD A - O3 Job ID: [id number] Document ID: [id number] cc: Get Gutierrez MD documented in this encounter Plan of Treatment Upcoming Encounters Date Type Department Care Team (Late st Contact Info) Description 12/06/2024 14:45 EST Rehab Therapy Visit [facility] [address] [place] [id number] Anita Power, OT [address] [facility] [place] [address] 12/13/2024 15:45 EST Rehab Therapy Visit [facility] [address] [place] [address] Anita Power, OT [address] [facility] [place] [address] 12/20/2024 16:30 EST Rehab Therapy Visit [facility] [address] [place] [address] Anita Power, OT [address] [place] [address] 12/27/2024 16:30 EST Rehab Therapy Visit [facility] [address] [place] [address] Anita Power, OT [address] [place] [address] documented as of this encounter Visit Diagnoses Not on filedocumented in this encounter
--- OUTSIDE RECORDS SUMMARY | 2024-11-28 16:31 | XMS_ITS | Encounter Summary ---
Author Organization [facility] Address [address] [place] [address] Care Team Providers Care Supervisor [employer] Name Role Phone Antonio Wilde Primary Care Provider Unavaila ble Reason for Visit * Reason Comments Abdominal Pain Patient arrives with RLQ abd pain that started yesterday morning, associated with n/v Encounter Details Date Type Department Care Team (Late st Contact Info) Description 07/16/2024 7:04 EDT - 07/16/2024 10:07 EDT Emergency [facility] Emergency Department [address] [place] [id number] Zain Diane MD [address] [place] [address] Right lower quadrant abdominal pain (Primary Dx) Discharge Disposition: Home or [...] Sign Reading Time Taken Comments Blood Pressure 138/79 07/16/2024 0901 EDT Pulse 91 07/16/2024 0709 EDT Temperature 36.5 ??C (97.7 ??F) 07/16/2024 0700 EDT Respiratory Rate 18 07/16/2024 0830 EDT Oxygen Saturation 97% 07/16/2024 0906 EDT Inhaled Oxygen Concentration - - Weight 77.1 kg (170 lb) 07/16/2024 0700 EDT Height 172.7 cm (5' 8) 07/16/2024 0700 EDT Body Mass Index 25.85 07/16/2024 0700 EDT documented in this encounter Functional Status * Are you deaf or do you have serious difficulty hearing? Answer Date of Assessment Author No 07/16/2024 6:58 EDT Tahir Dumont RN documented as of this encounter Discharge Instructions * Discharge Instructions* Zain Diane MD - 07/16/2024 9:48 EDT Cause of your pain is unclear but there is no sign of kidney stone, appendicitis, bowel blockage. Keep in mind that none of our tests are perfect so if your pain worsens or you develop uncontrolled vomiting, return to the ED for another checkup. Otherwise just rest until you feel better. documented in this encounter Medications at Time of Discharge insulin glargine 100 unit/mL (3 mL) injection pen Inject 40 Units into the skin at bedtime. insulin lispro (HUMALOG) 100 unit/mL vialIndications:t ype 1 diabetes mellitus Inject 8 Units into the skin 3 times daily before meals. documented as of this encounter Discharge Disposition Disposition Code Departure Means Destination Comment s Home or Self Custodial documented in this encounter ED Notes * Pastora Dumont RN - 07/16/2024 0720 EDT MS Diane at bedside. * Pastora Dumont RN - 07/16/2024 0720 EDT Blood drawn via saline lock per protocol, green, purple, and yellow tube(s) sent to lab per order. * Pastora Dumont RN - 07/16/2024 0659 EDT Patient arrives with RLQ sharp pain, intermittent in nature. States that it started yesterday morning, when he was eating. Associated with nausea and dry heaves but not able to throw anything up. States he has had chills, but unknown documented fever. * Zain Diane MD - 07/16/2024 0647 EDT Emergency Department Visit Medical Decision Making This is a pleasant 34-year-old with type 2 diabetes on insulin presents with right lower quadrant pain that began as right flank pain. He is nontoxic and afebrile with normal blood pressure and heartrate. No SIRS criteria by all signs. He is most tender in the right lower quadrant but also has some tenderness in the right upper quadrant in the epigastric area so a broad differential entertained includes acute appendicitis, pancreatitis, biliary colic, ureteral stone or hydronephrosis, less likely pyelonephritis, bowel obstruction or perforated duodenal ulcer. 10:30 CT showed no acute findings, no sign of appendicitis, renal colic, hydronephrosis. Urine was negative for any signs of infection. White count is normal. Lipase is slightly elevated but there is no specific tenderness in that area and notes radiographic signs of pancreatitis, and the slight elevation does not meet criteria for the diagnosis of pancreatitis. He was discharged in stable condition with clear return precautions should his pain worsen. Discharged with some Zofran for his mild nausea.Discharged in stable condition with return precautions No testicular symptoms Relevant Data as of 07/16/24 1031 Sun Jul 16, 2024 0811 Lipase(!): 666 [BS] 0812 WBC: 7.32 [BS] 0812 Creatinine: 0.86 [BS] Relevant Data User Index [BS] Zain Diane MD Medical Decision Making The following diagnose were considered: peptic ulcer disease, gastroenteritis, gastritis, gallbladder disease, hiatal hernia, hepatitis, pancreatitis, bowel obstruction, ischemic bowel, diverticulitis, appendicitis, perforated viscous, constipation, Crohn's disease, ulcerative colitis, irritable bowel syndrome, mesenteric adenitis, peritonitis, incarcerated hernia, lactose intolerance, urolithiasis, pyelonephritis, urinary tract infection Problems Addressed: Right lower quadrant abdominal pain: complicated acute illness or injury Amount and/or Complexity of Data Reviewed Labs: ordered. Decision-making details documented in ED Course. Radiology: ordered. Risk Prescription drug management. Final diagnoses: Right lower quadrant abdominal pain Disposition: Discharged Chief complaint: Right lower quadrant pain HPI Wilson Monteiro is a 34 y.o. male with a history of type 2 diabetes on insulin who presents to the EDfor right lower quadrant pain. Began as right flank pain about 2 days ago, gradually worsened, now worse with movement, going over bumps in the car. Has had nausea without vomiting. Also had loose watery stools, up to 5 yesterday without blood or melena. No dysuria hematuria or frequency. No fever or shaking chills. No dizziness lightheadedness, shortness of breath, chest pain, leg pain, syncope,palpitations, extremity pain or other findings on review of systems. No prior surgery on his abdomen. He tells me he is admitted once before for a bowel obstruction that resolved on its own. History was provided by: Patient Patient's pertinent PMH, FH, SH were reviewed and edited as necessary. Nursing notes reviewed. A medical screening exam was performed. Physical Exam BP 138/79 Pulse 91 Temp 36.5 ??C (97.7 ??F) (Temporal) Resp 18 Ht 172.7 cm (68) Wt 77.1 kg (170 lb) SpO2 97% BMI 25.85 kg/m?? Physical Exam Vitals and nursing note reviewed. Constitutional: General: He is not in acute distress. Appearance: He is well-developed. He is not diaphoretic. HENT: Head: Normocephalic and atraumatic. Eyes: General: No scleral icterus. Pupils: Pupils are equal, round, and reactive to light. Cardiovascular: Rate and Rhythm: Normal rate and regular rhythm. Pulmonary: Effort: Pulmonary effort is normal. No respiratory distress. Abdominal: General: Bowel sounds are normal. There is no distension. Palpations: Abdomen is soft. There is no mass. Tenderness: There is abdominal tenderness (Tenderness most prominently in the right lower quadrant with percussion tenderness and focal rebound) in the right upper quadrant, right lower quadrant and epigastric area. There is no right CVA tenderness, left CVA tenderness, guarding or rebound. Musculoskeletal: General: Normal range of motion. Cervical back: Normal range of motion and neck supple. Skin: General: Skin is warm and dry. Coloration: Skin is not pale. Findings: No erythema or rash. Neurological: General: No focal deficit present. Mental Status: He is alert and oriented to person, place, and time. Psychiatric: Behavior: Behavior normal. Thought Content: Thought content normal. Judgment: Judgment normal. Procedures Procedures documented in this encounter Plan of Treatment Upcoming Encounters Date Type Department Care Team (Late st Contact Info) Description 12/06/2024 14:45 EST Rehab Therapy Visit [facility] [address] [facility] [place] [address] Anita Power, OT [address] [facility] [address] 12/13/2024 15:45 EST Rehab Therapy Visit [facility] [address] [facility] [place] [address] Anita Power, OT [address] [facility]], [place] [address] 12/20/2024 16:30 EST Rehab Therapy Visit [facility] [address] [facility] [place] [address] Anita Power, OT [address] [facility]], [place] [address] 12/27/2024 16:30 EST Rehab Therapy Visit [facility] [address] [facility] [place] [address] Anita Power, OT [address] [facility]], [place] [address] documented as of this encounter Procedures Procedure Name Priority Date/Time Associated Diagnosis Comments POCT URINE DIPSTICK, VISUAL READ STAT 07/16/2024 9:[address] RENAL STONE STAT 07/16/2024 7:51 EDT HOLD SST Routine 07/16/2024 7:20 EDT HOLD LAVENDER TOP Routine 07/16/2024 7:2 0 EDT HOLD GREEN TOP Routine 07/16/2024 7:20 EDT COMPLETE BLOOD COUNT AND DIFFERENTIAL STAT Add-on 07/16/2024 7:20 EDT POCT GLUCOSE, INTERFACED Routine 07/16/2024 7:20 EDT LIPASE STAT Add-on 07/16/2024 7:20 EDT COMPREHENSIVE METABOLIC PANEL (CMP) STAT Add-on 07/16/2024 7:20 EDT documented in this encounter Results * POCT URINE DIPSTICK, VISUAL READ (07/16/2024 9:09 EDT) Color, UA Yellow Yellow, Colorless Clarity, UA Clear Clear Glucose, UA Negative Negative mg/dL Bilirubin, UA Negative Negative Ketones, UA Negative Negative mg/dL Spec Grav, UA 1.020 1.001 - 1.030 Blood, UA Negative Negative pH, UA 5.5 5.0 - 8.0 Protein, UA Negative Negative mg/dL Urobilinogen, UA 0.2 0.2 - 1.0 E.U./dL Nitrite, UA Negative Negative Leuk Esterase Negative Negative Comment Urine URINE SPECIMEN OBTAINED BY CLEAN CATCH PROCEDURE / Unknown 07/16/2024 9:09 EDT us Zain Diane MD POINT OF CARE TEST ORDERABLE S Final Result * CT RENAL STONE (07/16/2024 7:51 EDT) Anatomical Region Laterality Modality Body, Abdomen Computed Tomogra phy 07/16/2024 7:43 EDT Impressions 07/16/2024 8:30 EDT No acute abnormality. Additional findings as described. THIS DOCUMENT HAS BEEN ELECTRONICALLY SIGNED BY ADELAIDA BANUELOS MD FOR ANY QUESTIONS OR CONCERNS REGARDING THIS REPORT PLEASE CALL [facility] AT [phone] Narrative 07/16/2024 8:30 EDT PROCEDURE INFORMATION: Exam: CT Abdomen And Pelvis Without Contrast Exam date and time: 07/16/2024 7:43 AM Age: 34 years old Clinical indication: Other: Flank and rlq pain TECHNIQUE: Imaging protocol: Computed tomography of the abdomen and pelvis without contrast. Radiation optimization: All CT scans at this facility use at least one of these dose optimization techniques: automated exposure control; mA and/or kV adjustment per patient size (includes targeted exams where dose is matched to clinical indication); or iterative reconstruction. COMPARISON: No relevant prior studies available. FINDINGS: Coronary arteries: There is coronary artery calcification. Liver: Normal. No mass. Gallbladder and biliary ducts: There has been a cholecystectomy. Pancreas: Normal. No ductal dilation. Spleen: Normal. No splenomegaly. Adrenal glands: Normal. No mass. Kidneys and ureters: Normal. No hydronephrosis. Stomach and bowel: Unremarkable. No obstruction. No mucosal thickening. Appendix: The appendix is surgically absent. Intraperitoneal space: Unremarkable. No free air. No significant fluid collection. Vasculature: Unremarkable. No abdominal aortic aneurysm. Lymph nodes: Unremarkable. No enlarged lymph nodes. Urinary bladder: Unremarkable as visualized. Reproductive: Unremarkable as visualized. Bones/joints: Unremarkable. No acute fracture. Soft tissues: There are small bilateral fat containing inguinal hernias. Procedure Note Adelaida Banuelos MD - 07/16/2024 PROCEDURE INFORMATION: Exam: CT Abdomen And Pelvis Without Contrast Exam date and time: 07/16/2024 7:43 AM Age: 34 years old Clinical indication: Other: Flank and rlq pain TECHNIQUE: Imaging protocol: Computed tomography of the abdomen and pelvis without contrast. Radiation optimization: All CT scans at this facility use at least one of these dose optimization techniques: automated exposure control; mA and/or kV adjustment per patient size (includes targeted exams where dose is matched to clinical indication); or iterative reconstruction. COMPARISON: No relevant prior studies available. FINDINGS: Coronary arteries: There is coronary artery calcification. Liver: Normal. No mass. Gallbladder and biliary ducts: There has been a cholecystectomy. Pancreas: Normal. No ductal dilation. Spleen: Normal. No splenomegaly. Adrenal glands: Normal. No mass. Kidneys and ureters: Normal. No hydronephrosis. Stomach and bowel: Unremarkable. No obstruction. No mucosal thickening. Appendix: The appendix is surgically absent. Intraperitoneal space: Unremarkable. No free air. No significant fluid collection. Vasculature: Unremarkable. No abdominal aortic aneurysm. Lymph nodes: Unremarkable. No enlarged lymph nodes. Urinary bladder: Unremarkable as visualized. Reproductive: Unremarkable as visualized. Bones/joints: Unremarkable. No acute fracture. Soft tissues: There are small bilateral fat containing inguinal hernias. IMPRESSION No acute abnormality. Additional findings as described. THIS DOCUMENT HAS BEEN ELECTRONICALLY SIGNED BY ADELAIDA BANUELOS MD FOR ANY QUESTIONS OR CONCERNS REGARDING THIS REPORT PLEASE CALL [facility] [phone] us Zain Diane MD IMG CT ORDERABLES Final Resu lt * (ABNORMAL) COMPREHENSIVE METABOLIC PANEL (CMP) (07/16/2024 7:20 EDT) Sodium 140 136 - 145 mmol/L 07/16/2024 7:47 [facility] Potassium 4.1 3.5 - 5.0 mmol/L 07/16/2024 7:47 [facility] Chloride 105 96 - 110 mmol/L 07/16/2024 7:47 [facility] CO2 Total 22 22 - 32 mmol/L 07/16/2024 7:47 [facility] Glucose 188(H) 70 - 99 mg/dl 07/16/2024 7:47 [facility] BUN 16 10 - 26 mg/dL 07/16/2024 7:47 [facility] Creatinine 0.86 0.66 - 1.25 mg/dL 07/16/2024 7:47 [facility] eGFR 117 >60 mL/min/1.7 3m2 07/16/2024 7:47 [facility] Total Protein 7.5 6.3 - 8.2 g/dL 07/16/2024 7:47 [facility] Albumin 4.7 3.4 - 4.9 g/dL 07/16/2024 7:47 [facility] Alkaline Phosphatase 75 38 - 126 U/L 07/16/2024 7:47 [facility] AST 38 15 - 46 U/L 07/16/2024 7:47 [facility] ALT 37 <50 U/L 07/16/2024 7:47 [facility] Bilirubin, Total 0.6 <1.4 mg/dL 07/16/20 7:47 [facility] Calcium 9.0 8.5 - 10.5 mg/dL 07/16/2024 7:47 [facility] Albumin/Globulin Ratio 1.7 1.0 - 2.5 07/16/2024 7:47 [facility] Anion Gap 13 5 - 14 mmol/L 07/16/2024 7:47 [facility] Blood VENOUS BLOOD / Unknown Venipuncture / Unknown 07/16/2024 7:20 EDT 07/16/2024 7:25 EDT us Zain Diane MD CHEMISTRY & BLOOD GAS ORDERA BLES Final Result [facility] [address] [place] [address] * (ABNORMAL) COMPLETE BLOOD COUNT AND DIFFERENTIAL (07/16/2024 7:20 EDT) WBC 7.32 4.00 - 10.40 K/cmm 07/16/2024 7:28 [facility] RBC 5.38 4.36 - 5.78 M/cmm 07/16/2024 7:28 [facility] Hemoglobin 15.9 13.8 - 17.3 g/dL 07/16/2024 7:28 [facility] HCT 44.3 39.5 - 50.2 % 07/16/2024 7:28 [facility] MCV 82 81 - 95 fL 07/16/2024 7:28 [facility] MCH 29.6 27.6 - 33.0 pg 07/16/2024 7:28 [facility] MCHC 35.9 32.8 - 36.4 g/dL 07/16/2024 7:28 [facility] RDW-CV 12.9 <14.2 % 07/16/2024 7:28 [facility] RDW-SD 38.2 <46.0 fl 07/16/2024 7:28 [facility] PLT 216 141 - 377 K/cmm 07/16/2024 7:28 [facility] MPV 9.1(L) 9.5 - 12.7 fL 07/16/2024 7:28 [facility] % Neutrophils 76.8 % 07/16/2024 7:28 [facility] % Lymphocytes 14.2 % 07/16/2024 7:28 [facility] % Monocytes 7.4 % 07/16/2024 7:28 [facility] % Eosinophils 0.8 % 07/16/2024 7:28 [facility] % Basophils 0.5 % 07/16/2024 7:28 [facility] % Immature Grans 0.3 <0.9 % 07/16/20 7:28 [facility] Absolute Neutrophils 5.62 2.20 - 8.85 K/cmm 07/16/2024 7:28 [facility] Absolute Lymphocytes 1.04(L) 1.09 - 3.30 K/cmm 07/16/2024 7:28 [facility] Absolute Monocytes 0.54 0.10 - 0.80 K/cmm 07/16/2024 7:28 [facility] Absolute Eosinophils 0.06 0.03 - 0.61 K/cmm 07/16/2024 7:28 [facility] ABS Basophils 0.04 0.01 - 0.11 K/cmm 07/16/2024 7:28 [facility] Absolute Immature Grans 0.02 0.00 - 0.06 K/cmm 07/16/2024 7:28 EDT [facility] Type of Differential: Auto 07/16/2024 7:28 EDT [facility] Blood VENOUS BLOOD / Unknown Venipuncture / Unknown 07/16/2024 7:20 EDT 07/16/2024 7:25 EDT us Zain Diane MD PACKAGES & DNA PROBE ORDERAB LES Final Result Performing Organization Address [facility]/ZIP Co de Phone Number [facility] [address] [place] [address] * (ABNORMAL) LIPASE (07/16/2024 7:20 EDT) Lipase 666(H) <251 U/L 07/16/2024 7:47 EDT [facility] Blood VENOUS BLOOD / Unknown Venipuncture / Unknown 07/16/2024 7:20 EDT 07/16/2024 7:25 EDT us Zain Diane MD CHEMISTRY & BLOOD GAS ORDERA BLES Final Result Performing Organization Address [facility] Co de Phone Number [facility] [address] [place] [address] * (ABNORMAL) POCT GLUCOSE, INTERFACED (07/16/2024 7:20 EDT) Glucose, POC 198(H) 70 - 100 mg/dL 07/16/2024 7:22 EDT [facility] Blood CAPILLARY BLOOD / Unknown 07/16/2024 7:20 EDT 07/16/2024 7:22 EDT us Zain Diane MD POINT OF CARE TEST ORDERABLE S Final Result Performing Organization Address [facility]/ZIP Co de Phone Number [facility] [address] [place] [address] * HOLD GREEN TOP (07/16/2024 7:20 EDT) Hold Hold 07/16/2024 8:30 EDT [facility] Blood VENOUS BLOOD / Unknown Venipuncture / Unknown 07/16/2024 7:20 EDT 07/16/2024 7:25 EDT us Zain Diane MD LAB INFO SERVICE AND SUPPORT & PHONE RESULT Final Result Performing Organization Address [facility]/ZIP Co de Phone Number [facility] [address] [place] [address] * HOLD SST (07/16/2024 7:20 EDT) Hold Hold 07/16/2024 8:30 EDT [facility] Blood VENOUS BLOOD / Unknown Venipuncture / Unknown 07/16/2024 7:20 EDT 07/16/2024 7:25 EDT us Zain Diane MD LAB INFO SERVICE AND SUPPORT & PHONE RESULT Final Result Performing Organization Address [facility] Co de Phone Number [facility] [address] [place] [address] * HOLD LAVENDER TOP (07/16/2024 7:20 EDT) Hold Hold 07/16/2024 8:30 EDT [facility] Blood VENOUS BLOOD / Unknown Venipuncture / Unknown 07/16/2024 7:20 EDT 07/16/2024 7:25 EDT us Zain Diane MD LAB INFO SERVICE AND SUPPORT & PHONE RESULT Final Result Performing Organization Address [facility] Co de Phone Number [facility] [address] [place] [id number] documented in this encounter Visit Diagnoses Diagnosis Right lower quadrant abdominal pain- Primary Abdominal pain, right lower quadrant documented in this encounter Administered Medications Inactive Administered Medications - up to 3 most recent administrations Medication Order MAR Action Action Date Dose Rate Site acetaminophen (OFIRMEV) IV solution 1,000 mg 1,000 mg, intravenous, NOW X1, 1 dose, On 07/16/24 at 0745, STAT Given 07/16/2024 7:32 EDT 1,000 mg ketOROLAC (TORADOL) injection 15 mg 15 mg, intravenous, NOW X1, 1 dose, On 07/16/24 at 0745, STAT Given 07/16/2024 7:32 EDT 15 mg ondansetron (PF) (ZOFRAN) injection 4 mg 4 mg, intravenous, NOW X1, 1 dose, On 07/16/24 at 0745, STAT Given 07/16/2024 7:32 EDT 4 mg ondansetron 4 mg ODT tab STARTER PACK 1 Package, oral, Once (Without Time Specified), 1 dose, Starting on 07/16/24 at 1003, Until 07/16/24 at 1207, STAT sodium chloride 0.9 % BOLUS 1,000 mL 1,000 mL, intravenous, NOW X1, 1 dose, On 07/16/24 at 0745, STAT New Bag 07/16/2024 7:32 EDT 1,000 mL documented in this encounter Historical Medications * This list may reflect changes made after this encounter. insulin glargine 100 unit/mL (3 mL) injection pen Inject 40 Units into the skin at bedtime. insulin lispro (HUMALOG) 100 unit/mL vialIndications:t ype 1 diabetes mellitus Inject 8 Units into the skin 3 times daily before meals. added in this encounter Active and Recently Administered Medications Times are shown in EDT. Scheduled Medication Order 07/14/2024 07/15/2024 07/16/2024 acetaminophen (OFIRMEV) IV solution 1,000 mg (COMPLETED) 1,000 mg, intravenous, NOW X1, 1 dose, On 07/16/24 at 0745, STAT 0732 (Given - Provid er: Linda Tracy RN)0753 (Completed - Provider: Linda Tracy RN) ketOROLAC (TORADOL) injection 15 mg (COMPLETED) 15 mg, intravenous, NOW X1, 1 dose, On 07/16/24 at 0745, STAT 0732 (Given - Provid er: Linda Tracy RN) ondansetron (PF) (ZOFRAN) injection 4 mg (COMPLETED) 4 mg, intravenous, NOW X1, 1 dose, On 07/16/24 at 0745, STAT 0732 (Given - Provid er: Linda Tracy RN) ondansetron 4 mg ODT tab STARTER PACK 1 Package, oral, Once (Without Time Specified), 1 dose, Starting on 07/16/24 at 1003, Until 07/16/24 at 1207, STAT 1006 (Incomplete - P rovider: Linda Tracy RN) sodium chloride 0.9 % BOLUS 1,000 mL (COMPLETED) 1,000 mL, intravenous, NOW X1, 1 dose, On 07/16/24 at 0745, STAT 0732 (New Bag - Prov ider: Linda Tracy RN)[id number] (Completed - Provider: Linda Tracy RN) documented in this encounter Orders Medications Ordered That Gee ht Not Have Been Administered Count Last Ordered Date First Ordered Date ondansetron 4 mg ODT tab STARTER PACK 1 11/2023 documented in this encounter Care Teams Supervisor [employer] Relationship Specialty Start Date End Date Antonio Wilde PA PCP - General 09/25/15 documented as of this encounter
--- OUTSIDE RECORDS SUMMARY | 2024-11-28 16:31 | XMS_ITS | Encounter Summary ---
Author Organization [facility] Address [address] [place] [address] Care Team Providers Care 911 Operator Name Role Phone Unavailable Primary Care Provider Unavailabl e Encounter Details Date Type Department Care Team (Late st Contact Info) Description 07/06/2006 8:19 EDT Hospital Encounter [address] [phone] Social History Tobacco Use Types Packs/Day Years [...] Description 12/06/2024 14:45 EST Rehab Therapy Visit [facility] Rehabilitation Therapy [address] [place], [place] [phone] Anita Power, OT [address] [place] [address] 12/13/2024 15:45 EST Rehab Therapy Visit [facility] Rehabilitation Therapy [address] [place] [address] Anita Power, OT [address] [place] [address] 12/20/2024 16:30 EST Rehab Therapy Visit [facility] Therapy [address] [place] [address] Anita Power, OT [address] [place] [address] 12/27/2024 16:30 EST Rehab Therapy Visit [facility] Rehabilitation Therapy [address] [place] [address] Anita Power, OT [address] [place] [address] documented as of this encounter Procedures Procedure Name Priority Date/Time Associated Diagnosis Comments C PEPTIDE Routine 07/06/2006 10:23 EDT INSULIN Routine 07/06/2006 10:23 EDT TSH Routine 07/06/2006 10:23 EDT T4 FREE Routine 07/06/2006 10:23 EDT HEMOGLOBIN A1C Routine 07/06/2006 10:23 EDT LIPID PROFILE (INCLUDES CHOLESTEROL, TRIGLYCERIDES, HDL, LDL) Routine 07/06/2006 10:23 EDT COMPREHENSIVE METABOLIC PANEL (CMP) Routine 07/06/2006 10:23 EDT URINALYSIS WITH MICROSCOPIC IF POSITIVE Routine 07/06/2006 10:22 EDT UA REFLEX Routine 07/06/2006 10:22 EDT URINE [id number] RATIO (ACR) Routine 07/06/2006 10:22 EDT documented in this encounter Results * INSULIN (07/06/2006 10:23 EDT) Insulin 16.1 6.0 - 27.0 uIU/ml [facility] Comment:Fasting reference ra nge 07/06/2006 10:2 3 EDT 07/06/2006 10:33 EDT Donte Hugo [facility] CHEMISTRY & BL OOD GAS ORDERABLES Final Result Performing Organization Address [facility] Co de Phone Number [facility] [address] [place] [address] * TSH (07/06/2006 10:23 EDT) Pathologist [facility] TSH 2.34 0.35 - 5.00 uIU/mL [facility] 07/06/2006 10:2 3 EDT 07/06/2006 10:33 EDT Donte Hugo [facility] CHEMISTRY & BL OOD GAS ORDERABLES Final Result Performing Organization Address [facility] Phone Number [facility] [address] [place] [address] * (ABNORMAL) LIPID PROFILE (INCLUDES CHOLESTEROL, TRIGLYCERIDES, HDL, LDL) (07/06/2006 10:23 EDT) Cholesterol 247 mg/dl [facility] Comment: Desirable:<200 Borderline:200-239 High Risk:>fm=217 Triglycerides 169(H) 34 - 140 mg/dl [facility] HDL 43 mg/dl [facility] Comment: Highly Desirable:>60 Desirable:35-60 High Risk:<35 LDL, Calculated 170 mg/dl [facility] Comment: Desirable:<130 Borderline:130-159 High Risk:>nq=656 Chol/HDL Ratio 5.7 [facility] Fasting? Yes [facility] 07/06/2006 10:2 3 EDT 07/06/2006 10:33 EDT Donte Hugo [facility] CHEMISTRY & BL OOD GAS ORDERABLES Final Result Performing Organization Address [facility] de Phone Number [facility] [address] [place] [address] * T4 FREE (07/06/2006 10:23 EDT) Free T4 1.3 0.8 - 1.5 ng/dL [facility] 07/06/2006 10:2 3 EDT 07/06/2006 10:33 EDT us Donte Hugo MDCM CHEMISTRY & BL OOD GAS ORDERABLES Final Result [facility] [address] [place] [address] * C PEPTIDE (07/06/2006 10:23 EDT) Pathologist [facility] C-Peptide 3.0Unit: ng/mL(Note) -- EXPECTED VALUES -- ? (Ref Range) 0.9 to 4.3 ? [facility] C-Peptide, S 990Unit: pmol/L(Note) -- EXPECTED VALUES -- ? (Ref Range) 297 to 1419 ? Test Performed by: ? [facility] Dpt of Lab Med and Pathology ? [address] [place] [address] ? Telephone Quotation Clerk: Kenzie Perales M.D. ? [facility] 07/06/2006 10:2 3 EDT 07/06/2006 10:33 EDT us Donte Hugo MDCM CHEMISTRY & BL OOD GAS ORDERABLES Final Result [facility] [address] [place] [address] * (ABNORMAL) COMPREHENSIVE METABOLIC PANEL (07/06/2006 10:23 EDT) Potassium 4.2 3.6 - 5.2 mEq/L [facility] Sodium 140 136 - 145 mEq/L [facility] Chloride 100 96 - 110 mEq/L [facility] CO2 29 24 - 32 mEq/L [facility] Total Alkaline Phosphatase 104 65 - 260 U/L [facility] Bilirubin, Total <0.5 0.0 - 1.4 mg/dl [facility] AST 36 15 - 46 U/L [facility] ALT 42 0 - 45 U/L [facility] Albumin 4.8 3.0 - 5.5 g/dl [facility] Total Protein 7.9 6.3 - 8.6 g/dl [facility] Creatinine 0.87 0.6 - 1.2 mg/dl [facility] GFR, Calculated Age <18 ml/min/1.7 3m2 [facility] BUN 14 8 - 21 mg/dl [facility] Calcium 9.3 8.5 - 10.5 mg/dl [facility] Calculated Calcium 8.9 8.5 - 10.5 mg/dl [facility] Glucose, Serum 117(H) 70 - 100 mg/dl [facility] Fasting? Yes [facility] Albumin/Globulin Ratio 1.5 [facility] 07/06/2006 10:2 3 EDT 07/06/2006 10:33 EDT Donte Hugo [facility] CHEMISTRY & BL OOD GAS ORDERABLES Final Result [facility] [address] [place] [address] * HEMOGLOBIN A1C (07/06/2006 10:23 EDT) Hemoglobin A1C 6.2 % [facility] Comment: Reference Range: <6% Normal Range <7% Recommended goal by ADA guidelines 7-8% Suboptimal by ADA guidelines >8% Further action suggested by ADA guidelines 07/06/2006 10:2 3 EDT 07/06/2006 10:33 EDT Donte Hugo [facility] CHEMISTRY & BL OOD GAS ORDERABLES Final Result Performing Organization Address [facility] de Phone Number [facility] [address] [place] [address] * UA REFLEX (07/06/2006 10:22 EDT) UA Billing Microscopic not indicated. [facility] 07/06/2006 10:2 2 EDT 07/06/2006 10:32 EDT Donte Hugo [facility] URINALYSIS ORD ERABLES Final Result Performing Organization Address [facility] de Phone Number [facility] [address] [place] [address] * URINALYSIS (07/06/2006 10:22 EDT) Color, UA Yellow [facility] Clarity, UA Clear [facility] Glucose, UA Norm NORM [facility] Bilirubin, UA Neg NEG [facility] Ketones, UA Neg NEG [facility] Specific [place], Urine 1.025 1.005 - 1.02 [facility] Blood, UA Neg NEG [facility] pH, UA 6.0 5.0 - 9.0 [facility] Protein, UA Neg NEG [facility] Urobilinogen, UA Norm NORM mg/dL [facility] Nitrite, UA Neg NEG [facility] Leuk Esterase Neg NEG [facility] 07/06/2006 10:2 2 EDT 07/06/2006 10:32 EDT Donte Hugo [facility] URINALYSIS ORD ERABLES Final Result Performing Organization Address [facility] de Phone Number [facility] [address] [place] [address] * MICROALBUMIN (07/06/2006 10:22 EDT) Creatinine, Urn [place] 141.6 mg/dl [facility] Ur Albumin mg/dl 0.8 mg/dl [facility] Ur Alb ug/mg Crea 5.6 ug/mg Crea [facility] Comment: Normal: ??<30 ug/mg Creat Microalbuminuria: ??30-300 ug/mg Creat Clinical albuminuria: ??>300 ug/mg Creat 07/06/2006 10:2 2 EDT 07/06/2006 10:32 EDT Donte Hugo [facility] CHEMISTRY & BL OOD GAS ORDERABLES Final Result [facility] [address] [place] [address] documented in this encounter Visit Diagnoses Not on filedocumented in this encounter
--- OUTSIDE RECORDS SUMMARY | 2024-11-28 16:31 | XMS_ITS | Encounter Summary ---
Author Organization [facility] Address [address] [place] [address] Care Team Providers Care Director Of Events Name Role Phone Unavailable Primary Care Provider Unavailabl e Encounter Details Date Type Department Care Team (Late st Contact Info) Description 03/02/2006 9:30 EDT Hospital Encounter [address] [address] [phone] Social History Tobacco Use Types Packs/Day Years [...] Description 12/06/2024 14:45 EST Rehab Therapy Visit [facility] Rehabilitation Therapy [address] [place], [place] [phone] Anita Power, OT [address] [place] [address] 12/13/2024 15:45 EST Rehab Therapy Visit [facility] Rehabilitation Therapy [address] [place] [address] Anita Power, OT [address] [place] [address] 12/20/2024 16:30 EST Rehab Therapy Visit [facility] Rehabilitation Therapy [address] [place] [address] Anita Power, OT [address] [place] [address] 12/27/2024 16:30 EST Rehab Therapy Visit [facility] Rehabilitation Therapy [address] [place] [address] Anita Power, OT [address] [facility] [place] [place] [address] documented as of this encounter Procedures Procedure Name Priority Date/Time Associated Diagnosis Comments ZZHEMOGLOBIN A1C Routine 03/02/2006 14:3 0 EDT documented in this encounter Results * (ABNORMAL) HEMOGLOBIN A1C (03/02/2006 14:30 EDT) POCT Hgb A1C 6.0(H) 4.5 - 5.7 % [facility] Comment:Test performed at [facility] [place] 03/02/2006 14:3 0 EDT 03/05/2006 14:30 EDT Donte Hugo [facility] CHEMISTRY & BL OOD GAS ORDERABLES Final Result [facility] [address] [place] [address] documented in this encounter Visit Diagnoses Not on filedocumented in this encounter
--- OUTSIDE RECORDS SUMMARY | 2024-11-28 16:31 | XMS_ITS | Encounter Summary ---
Author Organization [facility] Address [address] [place] [address] Care Team Providers Care Director Case Name Role Phone Antonio Wilde Primary Care Provider Katherine moreno Encounter Details Date Type Department Care Team (Late st Contact Info) Description 10/31/2022 Lab Requisition [facility] Pathology & Laboratory Medicine - [address] [address] Outr Resulting Lab, Provider Social History Tobacco [...] [facility] Rehabilitation Therapy [address] [place] [address] Anita Power, OT [address] [place] [address] 12/13/2024 15:45 EST Rehab Therapy Visit [facility] Rehabilitation Therapy [address] [place] [address] Anita Power, OT [address] [place] [address] 12/20/2024 16:30 EST Rehab Therapy Visit [facility] Rehabilitation Therapy [address] [place] [address] Anita Power, OT [address] [place] [address] 12/27/2024 16:30 EST Rehab Therapy Visit [facility] Rehabilitation Therapy [address] [place] [address] Anita Power, OT [address] [place] [facility] [address] documented as of this encounter Procedures Procedure Name Priority Date/Time Associated Diagnosis Comments CHLAMYDIA/N. GONORRHOEAE AMPLIFIED NUCLEIC ACID Routine 10/30/2022 15:25 EST documented in this encounter Results * CHLAMYDIA/N. GONORRHOEAE AMPLIFIED RNA (10/30/2022 15:25 EST) Neisseria gonorrhoeae Result Negative Negative 11/02/2022 13:43 EST [facility] Chlamydia trachomatis Result Negative Negative 11/02/2022 13:43 EST [facility] Urine URINE / Unknown 10/30/2022 1 5:25 EST 11/01/2022 17:32 EST us Provider Outr Resulting Lab MICROBIOLOGY - GENER AL ORDERABLES Final Result [facility] [address] [place] [address] documented in this encounter Visit Diagnoses Not on filedocumented in this encounter Care Teams Director Case Relationship Specialty Start Date End Date Antonio Wilde PA PCP - General 09/25/15 documented as of this encounter
--- OUTSIDE RECORDS SUMMARY | 2024-11-28 16:31 | XMS_ITS | Encounter Summary ---
Author Organization [facility] Address [address] [place] [address] Care Team Providers Care Stereo Operator Name Role Phone Antonio Wilde Primary Care Provider Katherine moreno Encounter Details Date Type Department Care Team (Late st Contact Info) Description 05/01/2022 Lab Requisition [facility] Pathology & Laboratory Medicine - [address] [address] Outr Resulting Lab, Provider Social History Tobacco [...] Description 12/06/2024 14:45 EST Rehab Therapy Visit [facility] Rehabilitation Therapy [address] [place] [address] Anita Power, OT [address] [place] [address] 12/13/2024 15:45 EST Rehab Therapy Visit [facility] Rehabilitation Therapy [address] [place] [address] Anita Power, OT [address] [place] [address] 12/20/2024 16:30 EST Rehab Therapy Visit [facility] Rehabilitation Therapy [address] [place] [address] Anita Power, OT [address] [place] [address] 12/27/2024 16:30 EST Rehab Therapy Visit [facility] Rehabilitation Therapy [address] [place] [address] Anita Power, OT [address] [place] [address] documented as of this encounter Procedures Procedure Name Priority Date/Time Associated Diagnosis Comments ZZCOVID-19 TEST [facility] PCR Today 05/01/2022 9:20 EDT COVID-19 TESTING Routine 05/01/2022 9:20 EDT documented in this encounter Results * COVID-19 TEST [facility] PCR (05/01/2022 9:20 EDT) Swab 05/01/2022 9:20 EDT 05/01/2022 21:23 EDT us Provider Outr Resulting Lab MICROBIOLOGY - GENER AL ORDERABLES Final Result [facility] [address] [place] [address] * COVID-19 TESTING (05/01/2022 9:20 EDT) COVID-19 rt-PCR Result Negative Negative 05/02/2022 14:09 EDT [facility] Comment: This test has not been FDA cleared or approved. This test has been authorized by FDA under an EUA for use by authorized laboratories. This test has been authorized only for detection of nucleic acid from 2019-nCoV, not for any other viruses or pathogens. This test is only authorized for the duration of the declaration that circumstances exist justifying the authorization of emergency use of in vitro diagnostic tests for detection and/or diagnosis of 2019-nCoV under section 564(b)(1) of Act, 21 U.S.C ?? 360bbb-3(b) (1), unless the authorization is terminated or revoked sooner. Negative results do not preclude 2019-nCoV infection and should not be used as the sole basis for treatment or other patient management decisions. Negative results must be combined with clinical observations, patient history, and epidemiological information. Testing was performed using the joie SARS-CoV-2 assay ([employer] on the Joie 6800 System Performing Lab Joie 6800 [facility] 05/02/2022 14:09 EDT [facility] Swab 05/01/2022 9:20 EDT 05/01/2022 21:23 EDT us Provider Outr Resulting Lab MICROBIOLOGY - GENER AL ORDERABLES Final Result [facility] [address] [place] [address] documented in this encounter Visit Diagnoses Not on filedocumented in this encounter Care Teams Stereo Operator Relationship Specialty Start Date End Date Antonio Wilde PA PCP - General 09/25/15 documented as of this encounter
--- OUTSIDE RECORDS SUMMARY | 2024-11-28 16:31 | XMS_ITS | Encounter Summary ---
Author Organization [facility] Address [address] [place] [address] Care Team Providers Care Drive Tester Name Role Phone Unavailable Primary Care Provider Unavailabl e Encounter Details Date Type Department Care Team (Late st Contact Info) Description 11/03/2005 7:13 EST Hospital Encounter [address] [phone] Social History Tobacco Use Types Packs/Day Years [...] Visit [facility] Rehabilitation Therapy [address] [place], [place] [phone] Anita Power, OT [address] [place] [address] 12/13/2024 15:45 EST Rehab Therapy Visit [facility] Rehabilitation Therapy [address] [place], [place] [address] Anita Power, OT [address] [place] [address] 12/20/2024 16:30 EST Rehab Therapy Visit [facility] Rehabilitation Therapy [address] [place] [address] Anita Power, OT [address] [place] [address] 12/27/2024 16:30 EST Rehab Therapy Visit [facility] Rehabilitation Therapy [address] [place] [address] Anita Power, OT [address] [place] [address] documented as of this encounter Procedures Procedure Name Priority Date/Time Associated Diagnosis Comments ZZHEMOGLOBIN A1C Routine 11/03/2005 8:28 EST C PEPTIDE Routine 11/03/2005 7:13 EST URINALYSIS WITH MICROSCOPIC IF POSITIVE Routine 11/03/2005 7:13 EST UA REFLEX Routine 11/03/2005 7:13 EST GLUCOSE, PLASMA Routine 11/03/2005 7:13 EST INSULIN ANTIBODIES Routine 11/03/2005 7: 13 EST GLUTAMIC ACID DECARBOXYLASE ANTIBODY Routine 11/03/2005 7:13 EST INSULIN Routine 11/03/2005 7:13 EST HEMOGLOBIN A1C Routine 11/03/2005 7:13 EST LIPID PROFILE (INCLUDES CHOLESTEROL, TRIGLYCERIDES, HDL, LDL) Routine 11/03/2005 7:13 EST documented in this encounter Results * (ABNORMAL) HEMOGLOBIN A1C (11/03/2005 8:28 EST) POCT Hgb A1C 6.2(H) 4.5 - 5.7 % [facility] Comment:Test performed at [facility] [place] 11/03/2005 8:28 EST 11/05/2005 15:37 EST Donte Hugo [facility] CHEMISTRY & BL OOD GAS ORDERABLES Final Result Performing Organization Address [facility] de Phone Number [facility] [address] [place] [address] * UA REFLEX (11/03/2005 7:13 EST) [facility] Billing Microscopic not indicated. [facility] 11/03/2005 7:13 EST 11/03/2005 7:34 EST Donte Hugo [facility] URINALYSIS ORD ERABLES Final Result Performing Organization Address [facility] de Phone Number [facility] [address] [place] [address] * URINALYSIS (11/03/2005 7:13 EST) [facility] Color, UA Yellow [facility] Clarity, UA Clear [facility] Glucose, UA Norm NORM [facility] Bilirubin, UA Neg NEG [facility] Ketones, UA Neg NEG [facility] Specific [place], Urine 1.025 1.005 - 1.02 [facility] Blood, UA Neg NEG [facility] pH, UA 7.0 5.0 - 9.0 [facility] Protein, UA Neg NEG [facility] Urobilinogen, UA Norm NORM mg/dL [facility] Nitrite, UA Neg NEG [facility] Leuk Esterase Neg NEG [facility] 11/03/2005 7:13 EST 11/03/2005 7:34 EST Donte Hugo [facility] URINALYSIS ORD ERABLES Final Result Performing Organization Address [facility] de Phone Number [facility] [address] [place] [address] * INSULIN (11/03/2005 7:13 EST) [facility] Insulin 19.5 6.0 - 27.0 uIU/ml [facility] Comment:Fasting reference ra nge 11/03/2005 7:13 EST 11/03/2005 16:32 EST Donte Aranda Bethel [facility] CHEMISTRY & BL OOD GAS ORDERABLES Final Result Performing Organization Address [facility] de Phone Number [facility] [address] [place] [address] * (ABNORMAL) LIPID PROFILE (INCLUDES CHOLESTEROL, TRIGLYCERIDES, HDL, LDL) (11/03/2005 7:13 EST) [facility] Cholesterol 226 mg/dl [facility] Comment: Desirable:<200 Borderline:200-239 High Risk:>kn=[id number] Triglycerides 236(H) 34 - 165 mg/dl [facility] HDL 37 mg/dl [facility] Comment: Highly Desirable:>60 Desirable:35-60 High Risk:<35 LDL, Calculated 142 mg/dl [facility] Comment: Desirable:<130 Borderline:130-159 High Risk:>[id number] Chol/HDL Ratio 6.1 [facility] Fasting? Yes [facility] 11/03/2005 7:13 EST 11/03/2005 7:34 EST Donte Hugo [facility] CHEMISTRY & BL OOD GAS ORDERABLES Final Result Performing Organization Address [facility] de Phone Number [facility] [address] [place] [address] * INSULIN ANTIBODIES (11/03/2005 7:13 EST) [facility] Human <3Unit: % bound(Note) -- EXPECTED VALUES -- ? (Ref Range) <3 ? Test Performed by: ? [facility] Dpt of Lab Med and Pathology ? [address] [facility], [place] [address] ? Crystal Mounter: César Curtis M.D. ? [facility] 11/03/2005 7:13 EST 11/03/2005 7:34 EST us Donte Hugo MDCM CHEMISTRY & BL OOD GAS ORDERABLES Final Result [facility] [address] [place] [address] * GLUCOSE, PLASMA (11/03/2005 7:13 EST) Pathologist [facility] Glucose, Plasma 107 70 - 110 mg/dl [facility] 11/03/2005 7:13 EST 11/03/2005 7:34 EST Donte Hugo [facility] CHEMISTRY & BL OOD GAS ORDERABLES Final Result [facility] [address] [place] [address] * GLUTAMIC ACID DECARBOXYLASE ANTIBODY (11/03/2005 7:13 EST) Pathologist [facility] Glutamic Acid Decarboxylase Antibody Assay 0.00Unit: nmol/L(Note) -- EXPECTED VALUES -- ? (Ref Range) <= 0.02 ? Test Performed by: ? [facility] Dpt of Lab Med and Pathology ? [address] , [place] [address] ? Crystal Mounter: César Curtis M.D. ? [facility] 11/03/2005 7:13 EST 11/03/2005 7:34 EST Donte Hugo [facility] IMMUNOLOGY AND SEROLOGY ORDERABLES Final Result [facility] [address] [place] [address] * C PEPTIDE (11/03/2005 7:13 EST) C-Peptide 2.9Unit: ng/mL(Note) -- EXPECTED VALUES -- ? (Ref Range) 0.9 to 4.3 (>= 16 y) ? [facility] C-Peptide, S 957Unit: pmol/L(Note) -- EXPECTED VALUES -- ? (Ref Range) 297 to 1419 (>= 16 y) ? Test Performed by: ? [facility] Dpt of Lab Med and Pathology ? [address], [place] [address] ? Crystal Mounter: César Curtis M.D. ? [facility] 11/03/2005 7:13 EST 11/03/2005 7:34 EST us Donte Greco Manjo Hugo [facility] CHEMISTRY & BL OOD GAS ORDERABLES Final Result Performing Organization Address [facility] de Phone Number [facility] [address] [place] [address] * HEMOGLOBIN A1C (11/03/2005 7:13 EST) Hemoglobin A1C 6.2 % [facility] Comment: Reference Range: <6% Normal Range <7% Recommended goal by ADA guidelines 7-8% Suboptimal by ADA guidelines >8% Further action suggested by ADA guidelines 11/03/2005 7:13 EST 11/03/2005 7:34 EST Donte Hugo [facility] CHEMISTRY & BL OOD GAS ORDERABLES Final Result Performing Organization Address [facility] de Phone Number [facility] [address] [place] [address] documented in this encounter Visit Diagnoses Not on filedocumented in this encounter
--- OUTSIDE RECORDS SUMMARY | 2024-11-28 16:31 | XMS_ITS | Encounter Summary ---
Author Organization [facility] Address [address] [place] [address] Care Team Providers Care Staff Development Coordinator Rn Name Role Phone Antonio Wilde Primary Care Provider Katherine moreno Encounter Details Date Type Department Care Team (Latest Contact Info) Description 07/16/2024 Travel Social History Tobacco Use Types Packs/Day [...] Date of Assessment Author No 07/16/2024 6:58 Tahir Lugo RN documented as of this encounter Plan of Treatment Upcoming Encounters Date Type Department Care Team (Late st Contact Info) Description 12/06/2024 14:45 EST Rehab Therapy Visit [facility] Rehabilitation Therapy [address] [place] [address] Anita Power, OT [address] [place] [address] 12/13/2024 15:45 EST Rehab Therapy Visit [facility] Rehabilitation Therapy [address] [place] [address] Anita Power OT [address] [place] [address] 12/20/2024 16:30 EST Rehab Therapy Visit [facility] Rehabilitation Therapy [address] [place] [address] Anita Power, OT [address] [place] [address] 12/27/2024 16:30 EST Rehab Therapy Visit [facility] Rehabilitation Therapy [address] [place] [address] Anita Power, OT [address] [place] [address] documented as of this encounter Visit Diagnoses Not on filedocumented in this encounter Care Teams Staff Development Coordinator Rn Relationship Specialty Start Date End Date Antonio Wilde PA PCP - General 09/25/15 documented as of this encounter
[2024-11-28 17:54] LABS: ALT 64 U/L (16-63); AST 32 U/L (15-37); Albumin 4.3 g/dL (3.4-5.0); Alkaline Phosphatase 93 U/L (46-116); Anion Gap 9.2 mmol/L (3-11); BUN 17 mg/dL (7-18); Bilirubin, Total 0.39 mg/dL (0.2-1.0); CO2 27.8 mmol/L (21.0-32.0); Calcium 9.6 mg/dL (8.5-10.1); Calculated LDL 153 mg/dL (<100); Chloride 100 mmol/L (98-107); Cholesterol 257 mg/dL (<200); Estimated GFR 101.28 (mL/min/1.73m2); Glucose 274 mg/dL (74-106); HDL Cholesterol 54 mg/dL (40-60); Potassium 4.6 mmol/L (3.5-5.1); Sodium 137 mmol/L (136-145); Total Protein 7.7 g/dL (6.4-8.2); Triglyceride 252 mg/dL (<150)
== END 2024-11-28 16:30 | disposition home or self-care (01) ==
LOC: NCHCN 16:29
PROVIDERS: Visit Provider Physician Assistant
DX: E11.9 Type 2 diabetes mellitus without complications (principal)
CPT/HCPCS: 80053; 80061; 83036

== ENCOUNTER 2025-02-26 12:32 | Outpatient (REF) | payer MEDICAID, SELFPAY ==
[2025-02-26 15:38] LABS: Hemoglobin A1C 7.6 % (<5.7)
[2025-02-26 15:52] LABS: ALT 36 U/L (16-63); AST 23 U/L (15-37); Albumin 4.2 g/dL (3.4-5.0); Alkaline Phosphatase 98 U/L (46-116); BUN 11 mg/dL (7-18); Bilirubin, Total 0.4 mg/dL (0.2-1.0); CREATININE 0.8 mg/dL (0.70-1.30); Calcium 9.8 mg/dL (8.5-10.1); Chloride 101 mmol/L (98-107); Glucose 266 mg/dL (74-106); Potassium 4.4 mmol/L (3.5-5.1); Sodium 139 mmol/L (136-145); Total Protein 7.7 g/dL (6.4-8.2)
[2025-02-26 16:13] LABS: COMMENT (LAB VIEW ONLY) 42.34 mg/dL; Microalb ug/mg Crea 37.1 ug/mg Cr
== END 2025-02-26 12:33 | disposition home or self-care (01) ==
LOC: NCHCN 12:32
PROVIDERS: PCP Physician Assistant; Visit Provider Physician Assistant
DX: E11.9 Type 2 diabetes mellitus without complications (principal); R11.0 Nausea
CPT/HCPCS: 80053; 82043; 82570; 83036

== ENCOUNTER 2025-04-16 16:08 | Outpatient (REF) | payer MEDICAID, SELFPAY ==
[2025-04-16 22:50] LABS: Rheumatoid Factor <8.6 IU/mL (<12.0)
[2025-04-17 10:39] LABS: Ro60 Ab, IgG <7.0 CU (<20.0); SS-A/Ro, IgG <2.3 CU (<20.0); SS-B (La) Ab, IgG <3.3 CU (<20.0)
[2025-04-17 10:51] LABS: Cyclic Citrullinated Peptide <2.5 U/mL (<5.0)
[2025-04-18 14:28] LABS: ANA Interpretation Negative (Negative)
== END 2025-04-16 16:09 | disposition home or self-care (01) ==
LOC: NCHCN 16:08
PROVIDERS: PCP Physician Assistant; Visit Provider Student in an Organized Health Care Education/Training Program
DX: H04.123 Dry eye syndrome of bilateral lacrimal glands (principal); R53.83 Other fatigue; M25.561 Pain in right knee
CPT/HCPCS: 86200; 86038; 86235; 86431

== ENCOUNTER 2025-09-11 21:47 | Outpatient (REF) | payer MEDICAID, SELFPAY ==
[2025-09-11 20:31] LABS: HCT 45.5 % (40.0-50.0); HGB 15.9 g/dL (13.5-17.5); MCH 28.7 pg (27.0-33.0); MCHC 34.9 % (32.0-36.0); MCV 82 fL (80-95); MPV 9.9 fL (8.0-11.0); Platelet Count 225 10^3/uL (130-400); RBC 5.54 10^6/uL (4.36-5.78); RDW 12.7 % (11.8-14.1); RDW-SD 38.1 fL; WBC 7.14 10^3/uL (4.4-10.8)
[2025-09-11 20:55] LABS: ALT 56 U/L (16-63); AST 37 U/L (15-37); Albumin 4.0 g/dL (3.4-5.0); Alkaline Phosphatase 80 U/L (46-116); Anion Gap 12.2 mmol/L (3-11); BUN 17 mg/dL (7-18); Bilirubin, Total 0.6 mg/dL (0.2-1.0); CO2 21.8 mmol/L (21.0-32.0); Calcium 8.6 mg/dL (8.5-10.1); Chloride 103 mmol/L (98-107); Estimated GFR 89.78 (mL/min/1.73m2); Glucose 328 mg/dL (74-106); Potassium 3.9 mmol/L (3.5-5.1); Sodium 137 mmol/L (136-145); TSH (W/Ref FT4) 0.55 uIU/mL (0.36-3.74); Total Protein 7.3 g/dL (6.4-8.2)
[2025-09-11 21:02] LABS: Hemoglobin A1C 10.2 % (<5.7)
[2025-09-12 18:08] LABS: Hepatitis C Ab w Rflx HCV PCR Negative (Negative)
[2025-09-12 18:42] LABS: HIV-1/2 Ag & Ab Screen Negative (Negative)
[2025-09-13 10:34] LABS: Syphilis Serology (RPR) Negative (Negative)
[2025-09-13 11:28] LABS: Chlamydia Result Negative (Negative); GC Result Negative (Negative)
== END 2025-09-11 21:48 | disposition home or self-care (01) ==
LOC: NCHCN 21:47
PROVIDERS: PCP Physician Assistant; Visit Provider Physician Assistant
DX: R53.83 Other fatigue (principal); E11.9 Type 2 diabetes mellitus without complications; Z11.3 Encounter for screening for infections with a predominantly sexual mode of transmission
CPT/HCPCS: 80053; 85027; 86803; 87389; 87491; 87591; 83036; 84443; 86592